=== PATIENT | male | born 1945 | race Caucasian/White ===

== ENCOUNTER → 2023-11-05 10:24 | Outpatient (REF) | payer MEDICARE, BC, SELFPAY ==
[2023-11-05 12:55] LABS: NT-proBNP 1100 pg/ml
[2023-11-05 13:10] LABS: Blood Urea Nitrogen 24 mg/dl (9-20); Calcium 9.8 mg/dl (8.4-10.2); Carbon Dioxide 24 mmol/L (22-30); Chloride 104 mmol/L (98-107); Glucose 85 mg/dl (70-99); Sodium 139 mmol/L (135-145); eGFR > 60.00
== END ==
LOC: RCS 10:24
PROVIDERS: ATTENDING PHYSICIAN Nurse Practitioner Gerontology; FAMILY PHYSICIAN Family Medicine; OTHER PHYSICIAN Nurse Practitioner Family
DX: R01.1 Cardiac murmur, unspecified (principal); M79.89 Other specified soft tissue disorders; R06.02 Shortness of breath
CPT/HCPCS: 36415; 80048; 83880; 93306

== ENCOUNTER → 2023-11-06 12:14 | Outpatient (REF) | payer MEDICARE, BC, SELFPAY ==
[2023-11-06 13:54] LABS: Blood Urea Nitrogen 31 mg/dl (9-20); Calcium 9.4 mg/dl (8.4-10.2); Carbon Dioxide 22 mmol/L (22-30); Chloride 106 mmol/L (98-107); Glucose 84 mg/dl (70-99); Potassium 5.1 mmol/L (3.5-5.1); Sodium 138 mmol/L (135-145); eGFR 50.81
== END ==
LOC: RCS 12:14
PROVIDERS: ATTENDING PHYSICIAN Internal Medicine Cardiovascular Disease; FAMILY PHYSICIAN Family Medicine
DX: E87.5 Hyperkalemia (principal)
CPT/HCPCS: 36415; 80048; 93005

== ENCOUNTER → 2023-11-11 09:56 | Outpatient (REF) | payer MEDICARE, BC, SELFPAY ==
[2023-11-11 10:54] LABS: % Basophils 0.9 % (0-2); % Eosinophils 3.8 % (0-6); % Immature Granulocytes 0.3 % (0-0.5); % Lymphocytes 8.1 % (20.5-51.1); % Monocytes 8.5 % (1.7-9.3); % Neutrophils 78.4 % (42.2-75.2); Absolute Basophils 0.1 10^3/uL (0-0.2); Absolute Eosinophils 0.3 10^3/uL (0-0.7); Absolute Lymphocytes 0.6 10^3/uL (1.2-3.4); Absolute Monocytes 0.7 10^3/uL (0.1-0.6); Absolute Neutrophils 6.2 10^3/uL (1.4-6.5); Hematocrit 48.3 % (39.0-52.0); Hemoglobin 16.3 g/dL (13.0-18.0); Mean Corp Hgb Conc. 33.7 g/dL (33.0-37.0); Mean Corpuscular Hgb 34.2 pg (27.0-31.0); Mean Corpuscular Volume 101.3 fL (80.0-94.0); Mean Platelet Volume 9.4 fL (7.4-10.4); Nucleated Red Blood Cells % 0 % (-); Platelet Count 255 10^3/uL (130-400); Red Blood Cell Count 4.77 10^6/uL (4.70-6.10); Red Cell Dist. Width 13.2 % (11.5-14.5); White Blood Cell Count 7.9 10^3/uL (4.8-10.8)
[2023-11-11 11:35] LABS: AST (SGOT) 22 U/L (17-59)
[2023-11-11 11:36] LABS: ALT (SGPT) 13 U/L (0-50); Albumin 3.9 g/dl (3.5-5.0); Alkaline Phosphatase 102 U/L (38-126); Blood Urea Nitrogen 28 mg/dl (9-20); Calcium 9.2 mg/dl (8.4-10.2); Carbon Dioxide 25 mmol/L (22-30); Chloride 105 mmol/L (98-107); Glucose 97 mg/dl (70-99); HDL Cholesterol 93 mg/dl; LDL Cholesterol, Calculated 98 mg/dl; Sodium 138 mmol/L (135-145); Total Bilirubin 0.7 mg/dl (0.2-1.3); Total Cholesterol 204 mg/dl (50-199); Total Protein 7.6 g/dl (6.3-8.2); Triglyceride 66 mg/dl (10-149); Very Low Density Lipoprotein 13 mg/dl (0-30); eGFR > 60.00
[2023-11-11 11:53] LABS: PSA, Total - Diagnostic 9.86 ng/ml (0.0-4.0)
== END ==
LOC: REG 09:56
PROVIDERS: ATTENDING PHYSICIAN Internal Medicine Cardiovascular Disease; FAMILY PHYSICIAN Family Medicine
DX: C61 Malignant neoplasm of prostate (principal); I25.10 Atherosclerotic heart disease of native coronary artery without angina pectoris; E78.00 Pure hypercholesterolemia, unspecified; D64.9 Anemia, unspecified; I10 Essential (primary) hypertension; N17.9 Acute kidney failure, unspecified
CPT/HCPCS: 36415; 80053; 80061; 84153; 85025

== ENCOUNTER → 2023-11-19 11:29 | Outpatient (REF) | payer MEDICARE, BC, SELFPAY | LOC: RAD 11:29 | PROVIDERS: ATTENDING PHYSICIAN Nurse Practitioner Family | DX: R06.02 Shortness of breath (principal) | CPT/HCPCS: 71046 ==

== ENCOUNTER → 2023-12-11 10:50 | Outpatient (REF) | payer MEDICARE, BC, SELFPAY ==
[2023-12-11 13:19] LABS: Blood Urea Nitrogen 30 mg/dl (9-20); Calcium 9.3 mg/dl (8.4-10.2); Carbon Dioxide 24 mmol/L (22-30); Chloride 106 mmol/L (98-107); Glucose 105 mg/dl (70-99); Potassium 5.1 mmol/L (3.5-5.1); Sodium 140 mmol/L (135-145); eGFR > 60.00
== END ==
LOC: REG 10:50
PROVIDERS: ATTENDING PHYSICIAN Internal Medicine Cardiovascular Disease; FAMILY PHYSICIAN Family Medicine; REFERRING PHYSICIAN Internal Medicine Cardiovascular Disease
DX: I10 Essential (primary) hypertension (principal); N17.9 Acute kidney failure, unspecified
CPT/HCPCS: 36415; 80048

== ENCOUNTER → 2024-04-02 11:41 | Outpatient (REF) | payer MEDICARE, BC, SELFPAY ==
[2024-04-02 14:01] LABS: PSA, Total - Diagnostic 0.32 ng/ml (0.0-4.0)
== END ==
LOC: REG 11:41
PROVIDERS: ATTENDING PHYSICIAN Specialist; FAMILY PHYSICIAN Family Medicine; OTHER PHYSICIAN Internal Medicine Cardiovascular Disease
DX: N39.41 Urge incontinence (principal); C61 Malignant neoplasm of prostate
CPT/HCPCS: 36415; 84153; 84403

== ENCOUNTER 2024-04-29 22:43 | Inpatient (IN) | payer MEDICARE, BC, SELFPAY ==
[2024-04-29] VITALS (13 sets, daily range): BP systolic 98–125; BP diastolic 51–98; PULSE 2–103; BMI 30.2; BMI 30.1
--- NOTE | 2024-04-29 19:31 | ED.GENMED ---
History of Present Illness
General
Chief Complaint: Breathing Problem
Source: patient
Time Seen by Provider: 04/29/24 19:09
History of Present Illness
History of Present Illness:
79-year-old male presents to the emergency room for shortness of breath, generalized weakness. Family states the patient has not been motivated or had the energy to get out of his chair all day. He seems winded. They used a home pulse oximeter to
measure his pulse ox and were getting readings in the 60s. Family noted increasing lower extremity edema. No known fever. Patient denies any chest pain. Patient states he has been compliant with his medications.
Past History
Past History
ED Past Medical History: COPD (Mild), HTN, Hypercholesterolemia and Other (GI bleed)
ED Past Surgical History: Appendectomy, Urological and Other (Hernia repair)
Social History
Tobacco: Former smoker
Alcohol: Daily (wine 3 glases)
Personal:
Living: with family
Family History
Family History: Other (Parkinson's); Negative Diabetes, Hypertension, Early CAD, Asthma or Cancer
Phy Exam
Physical Exam
Physical Exam:
General: Awake, Alert, Oriented X3. Appears somewhat short of breath, chronically ill
Vitals: Tachycardic
Head: Atraumatic
Eyes: Pupils equal, EOMI
Throat: Airway intact, no exudates, markedly dry mucosa
Neck: Trachea midline
Lungs: Crackles bilateral bases
Heart: Tachycardic, irregular
Abd: Soft, Nontender, No pulsatile mass
Neuro: Nonfocal
Skin: Warm, dry, no rash
Extremities: pulses equal b/l, 3+ edema
Scores
Heart Failure Risk
Heart Failure Risk Score: Yes
History of Stroke or TIA: No
History of intubation for respiratory distress: No
Heart rate on ED arrival >/= 110: Yes
SaO2 <90% on arrival on room air: Yes
HR >/=110 during 3min walk test (or too ill to perform test): Yes
ECG has acute ischemic changes: Yes
Urea >/=12mmol/L (BUN 33.6mg/dL): Yes
Serum CO2>/=35mmol/L: No
Troponin I or T elevated to OK Level (0.4mg/dL): No
NT-proBNP >/=5,000ng/L (5,000pg/ml): Yes
HF Risk Score: 7
Admission Status: VERY HIGH RISK 69.8% Consider admission to hospital
Course
Orders/Labs/Results
Orders:
Orders
04/29/24 19:12
Electrocardiogram (*1) Urgent
Reason for Study: Atrial Flutter
EKG- Treatment ONCE
04/29/24 19:24
Complete Blood Count/With Diff Urgent
Comprehensive Metabolic Panel Urgent
NT-proBNP Urgent
Troponin I Urgent
Venous Blood Gas Urgent
%Oxygen/Room Air: 85
04/29/24 19:30
Diltiazem 125 mg/125 ml Nss [Cardizem] 125 mg in 125 ml IV NOW
Initial dose in mg/hr, then titrate:: 5
Titrate to keep:: Heart rate 80-100 bpm
Titrate by mg/hr:: 5 mg/hr
Frequency of titrations (minutes):: 15
Maximum dose in mg/hr:: 15
Diltiazem HCl [Cardizem] 15 mg IV NOW STA
04/29/24 19:31
CR Chest Portable - 1 View Urgent
Comment:
Reason For Exam: sob, hypoxia
Reason Study Needs to be Portable: Patient Unstable
04/29/24 20:10
Bipap [RESP] Urgent
Patient to use own unit?: No
Inspiratory Pressure (cm H2O): 12
Expiratory Pressure (cm H2O): 4
04/29/24 20:11
Electrocardiogram (*1) Urgent
Reason for Study: Tachycardia
04/29/24 20:12
EKG- Treatment ONCE
04/29/24 20:34
0.9% Sodium Chloride 500 ml [Nss] 500 ml IV BOLUS
Diltiazem HCl [Cardizem] 25 mg IV NOW STA
04/29/24 21:00
Apixaban [Eliquis] 2.5 mg PO NOW STA
04/29/24 21:18
Admit/Transfer Patient As Directed
Co-Sign Provider:
Level of Care: Inpatient admission
Assign to:: IMU- Intermediate Care
Physician / Group: Bartolo
Diagnosis: A-Fib, CHF, Hypercapnic Resp Failure
Reason for Hospitalization: A-Fib, CHF, Hypercapnic Resp Failure
Expected length of stay greater than two midnights?: Yes
ELOS- Estimated Length of Stay in days: 4
I certify the patient meets the requirements for IP care: Yes
04/29/24 21:19
PRN Pain Medication Management As Directed
May give lesser potent ordered pain med per pt: Yes
preference::
Protocol:: Medication orders for pain may be administered in a
manner that supports deferring to patient preference
when the pt is:
- Requesting an ordered lesser potent pain medication.
Least to most potent pain medications are defined
as: acetaminophen < NSAID < tramadol < opioids
(morphine, oxycodone, hydromorphone).
- Requesting a lesser dose of the same medication IF
ORDERED.
- Requesting a less intrusive route of administration
if both routes are prescribed by the provider (PO <
IV).
04/29/24 21:20
Code Status As Directed
Resuscitation Status: Full Code
Abnormal Lab Results
04/29/24
19:24
RBC 3.97 L 10^6/uL
(4.70-6.10)
Hgb 12.6 L g/dL
(13.0-18.0)
MCV 103.5 H fL
(80.0-94.0)
MCH 31.7 H pg
(27.0-31.0)
MCHC 30.7 L g/dL
(33.0-37.0)
Absolute Neuts (auto) 7.6 H 10^3/uL
(1.4-6.5)
Absolute Lymphs (auto) 0.5 L 10^3/uL
(1.2-3.4)
Absolute Monos (auto) 0.9 H 10^3/uL
(0.1-0.6)
Neutrophils % 83.2 H %
(42.2-75.2)
Lymphocytes % 5.3 L %
(20.5-51.1)
VBG pH 7.18 L*
(7.32-7.43)
VBG pCO2 73 H* mmHg
(35-48)
VBG HCO3 27.2 H mmol/L
(22-27)
BUN 70 H mg/dl
(9-20)
Creatinine 2.5 H mg/dL
(0.7-1.3)
Glucose 118 H mg/dl
(70-99)
Troponin I 0.068 H* ng/ml
04/29/24 19:24
04/29/24 19:24
Vital Signs
Initial and Last Documented VS:
Initial Vital Signs
Temp Pulse Resp BP Pulse Ox
97.8 F 139 20 113/98 98
04/29/24 19:10 04/29/24 19:10 04/29/24 19:10 04/29/24 19:10 04/29/24 19:10
Last Documented Vital Signs
Temp Pulse Resp BP Pulse Ox
97.8 F 119 28 98/77 93
04/29/24 19:10 04/29/24 22:00 04/29/24 22:00 04/29/24 22:00 04/29/24 22:00
MDM/Problems Addressed
Differential Diagnosis Includes:
CHF, COPD exacerbation, atrial fibrillation, MAT, PE
MDM/Problems Addressed:
Patient presents with malaise, shortness of breath. EKG here reveals atrial flutter with rapid ventricular response. Physical exam reveals crackles and decreased aeration. Labs show a normal white count, essentially normal hemoglobin, respiratory
acidosis on a venous blood gas with the pCO2 of 73. BiPAP initiated for this which is likely related to a combination of CHF and COPD. Patient's renal function is markedly abnormal with a BUN of 70 creatinine 2.5. Clinically he appears to be
intravascular depleted despite the fact he has third spaced a lot of fluid and, certainly has some component of heart failure. Troponin minimally elevated 0.068 which is of uncertain significance. proBNP is markedly elevated at 11,000. Small IV
fluid bolus given to help replace intravascular depletion. Patient likely will require diuresis during this stay but currently with his clinical exam and elevated BUN and creatinine I feel we need some intravascular fluid repletion. Cardizem bolus
and infusion administered to help control his a flutter with rapid ventricular response. Dose of Eliquis administered for this as well. Case discussed with Dr. Moran.
Chronic conditions affecting care: HTN and COPD
*Radiology
Radiology exam reviewed: preliminary read by ED provider (No effusions, no significant pulmonary edema on my review)
*Pulse Oximetry
Patient hypoxic: no
*EKG
Interpreted by ED Provider?: Yes
Heart Rate: 139
Rate: tachycardiac
Rhythm: atrial flutter
QRS Pattern: normal QRS
Ischemia: non-specific ST changes
*[employer] Interpretation
Rate: tachycardiac
Interpretation: abnormal
Heart Rate: 139
Rhythm: atrial flutter
*Critical Care Note
Total Time (30-74mins, 75-104mins- exclusive of procedures): 40 min
comment:
Critical care statement: A total of 40 minutes of critical care time was provided for this patient. This includes management of unstable vital signs, evaluation of the patient at bedside, reviewing the patient's pertinent medical records, discussion
with consultants, review of old EKGs and review of pertinent medical records. This time with separate from time utilized to perform the aforementioned documented procedures
ED Attending Note
-
Portions of this chart may have been created with voice recognition software.� Occasional wrong word or��sound alike� substitutions may have occurred due to the inherent limitations of voice recognition software.
Discharge Plan
Departure
Patient Disposition: Admit
Date of Disposition: 04/29/24
Time of Disposition: 20:41
Admit to: IMU
Presentation/result/management discussed w/ accepting MD/DO: Hospitalist
Condition: Fair
Discharge Problem:
Atrial flutter with rapid ventricular response, COPD exacerbation, Acute renal failure (ARF), Acute dehydration, Acute respiratory acidosis
Prescriptions:
No Action
Trelegy Ellipta 100-62.5-25 mcg Blister With Device
1 inh INHALATION R DAILY
rosuvastatin [Crestor] 20 mg tablet
20 mg PO DAILY Qty: 90 3RF
furosemide [Lasix] 20 mg Tablet
20 mg PO DAILY
bicalutamide 50 mg Tablet
50 mg PO DAILY
omeprazole 40 mg Capsule,Delayed Release(Dr/Ec)
40 mg PO DAILY
Interventions
Interventions:
*Risk Screen - Suicide Last Done: 04/29/24 19:10
*General Assessment Last Done: 04/29/24 19:10
*Neglect/Abuse Screening Last Done: 04/29/24 19:10
ED- Cardiac Assessment Last Done: 04/29/24 20:17
ED- Pulmonary Assessment Last Done: 04/29/24 20:17
Discharge Date and Time
Print Language: SERBIAN
[2024-04-29 19:32] LABS: Venous Blood Gas B.E. -2.8 mmol/L (-4 to +4); Venous Blood Gas HCO3 27.2 mmol/L (22-27); Venous Blood Gas O2 Sat % 54.9 %; Venous Blood Gas pO2 38 mmHg (30-50)
[2024-04-29 19:33] LABS: % Basophils 0.5 % (0-2); % Eosinophils 1.6 % (0-6); % Immature Granulocytes 0.2 % (0-0.5); % Lymphocytes 5.3 % (20.5-51.1); % Monocytes 9.2 % (1.7-9.3); % Neutrophils 83.2 % (42.2-75.2); Absolute Basophils 0.1 10^3/uL (0-0.2); Absolute Eosinophils 0.2 10^3/uL (0-0.7); Absolute Lymphocytes 0.5 10^3/uL (1.2-3.4); Absolute Monocytes 0.9 10^3/uL (0.1-0.6); Absolute Neutrophils 7.6 10^3/uL (1.4-6.5); Hematocrit 41.1 % (39.0-52.0); Hemoglobin 12.6 g/dL (13.0-18.0); Mean Corp Hgb Conc. 30.7 g/dL (33.0-37.0); Mean Corpuscular Hgb 31.7 pg (27.0-31.0); Mean Corpuscular Volume 103.5 fL (80.0-94.0); Nucleated Red Blood Cells % 0 % (-); Platelet Count 382 10^3/uL (130-400); Red Blood Cell Count 3.97 10^6/uL (4.70-6.10); Red Cell Dist. Width 13.5 % (11.5-14.5); White Blood Cell Count 9.2 10^3/uL (4.8-10.8)
[2024-04-29] MEDS: CARDIZEM 15 MG IV (19:39)
[2024-04-29] MEDS: CARDIZEM 125 IV (19:40)
[2024-04-29 19:44] LABS: Venous Blood Gas pCO2 73 mmHg (35-48); Venous Blood Gas pH 7.18 (7.32-7.43)
[2024-04-29 20:11] LABS: NT-proBNP 11100 pg/ml; Troponin I 0.068 ng/ml
[2024-04-29 20:15] LABS: ALT (SGPT) 18 U/L (0-50); AST (SGOT) 22 U/L (17-59); Albumin 4.2 g/dl (3.5-5.0); Alkaline Phosphatase 98 U/L (38-126); Blood Urea Nitrogen 70 mg/dl (9-20); Calcium 8.9 mg/dl (8.4-10.2); Carbon Dioxide 26 mmol/L (22-30); Chloride 103 mmol/L (98-107); Estimated Creatinine Clearance 29 ml/min; Glucose 118 mg/dl (70-99); Potassium 5.1 mmol/L (3.5-5.1); Sodium 143 mmol/L (135-145); Total Bilirubin 0.4 mg/dl (0.2-1.3); Total Protein 7.9 g/dl (6.3-8.2); eGFR 25.18
[2024-04-29] MEDS: NSS 500 IV (20:41)
[2024-04-29] MEDS: CARDIZEM 25 MG IV (20:41)
--- NOTE | 2024-04-29 21:25 | HPS.HSE ---
Family Physician
-
Family Physician: Christian Pittman
Chief Complaint
-
Weakness
History of Present Illness
Patient is an 79y M with PMH significant for ASCVD, CHF and COPD who presents to ED for evaluation of weakness and fatigue. History obtained from patient and his family at the bedside. Patient has reportedly been more tired / fatigued over the
past few days / weeks. He specifically denies any new / worsened SOB, chest pain / pressure, palpitations, cough, fevers / chills, etc. He admits to feeling tired. He states that he has been compliant with his diuretic dosing and his home O2 use
- since Pulmonary visit on 04/14 when his non-compliance with these measures was addressed.
Despite this, patient states that his weight is up and his LE swelling is greatly increased.
His family notes that he slept for much of the day yesterday and had no appetite yesterday or today. He did not eat despite the holiday / family gathering.
Family encouraged evaluation in the ED.
On arrival, patient was noted to be in SVT with rate of 140 bpm that remained fairly constant.
Again, he had no sense of palpitations. He denies any prior h/o A-Fib or other arrhythmia.
Medical History
Past Medical History
Past Medical History: Reports Other
Additional Past Medical History:
ASCVD (CAD, PAD)
Hypertension
Chronic HFpEF
COPD
GERD / Hiatal Hernia
Prostate Cancer
Past Surgical History: Reports Other
Additional Past Surgical History:
Prostatectomy
Appendectomy
Eye Surgery
Left Decortication / Pleurodesis
Social History
Tobacco: Former Smoker (Quit smoking 15 years ago. 30 pack years total use.)
Alcohol: Occasional
Drug: None
Family History
Family History: Not pertinent
Allergies / Home Medications
Allergies reflects when Allergies were last updated in [employer].
Home Medications with original date entered in [employer]
Allergy/Medication List:
Allergies
Allergy/AdvReac Type Severity Reaction Status Date / Time
Penicillins Allergy Intermediate rash, Verified 04/29/24 19:10
swelling
Home Medications
fluticasone fur. 100 mcg-umeclid 62.5 mcg-vilant 25 mcg inhalat.powder (Trelegy Ellipta) 1 inh inhalation R DAILY 11/01/22
rosuvastatin 20 mg tablet (Crestor) 20 mg PO DAILY #90 tabs 11/12/22
bicalutamide 50 mg tablet 50 mg PO DAILY 04/29/24
furosemide 20 mg tablet (Lasix) 20 mg PO DAILY 04/29/24
omeprazole 40 mg capsule,delayed release 40 mg PO DAILY 04/29/24
Review of Systems
-
History Source: Patient and Family
A 12 point ROS was completed and negative except as noted: Yes
Constitutional: Reports Fatigue; Denies Fever or Chills
EENT: Denies Sore Throat
Respiratory: Reports Trouble Breathing; Denies Cough or Hemoptysis
Cardiac: Denies Chest Pain, Diaphoresis, Palpitations or Syncope
Abdomen/GI: Reports Anorexia; Denies Abdominal Pain, Nausea, Vomiting or Diarrhea
: Denies Dysuria, Frequency or Flank Pain
Musculoskeletal: Reports Edema; Denies Joint Pain
Neurological: Denies Dizzy or Headache
Psych: Denies Depression or Anxiety
Physical Exam
Vital Signs
Vital Signs
Temp Pulse Resp BP Pulse Ox
97.8 F 138 26 109/51 92
04/29/24 19:10 04/29/24 20:15 04/29/24 20:15 04/29/24 20:00 04/29/24 19:45
Physical Exam
General: Other (79y M in no acute distress. BiPAP mask in place.)
HEENT: Moist mucous membranes, PERRLA and Other (Pos JVD to the angle of the mandible.)
Respiratory: Other (Decreased BS at bases - few scattered rales. No rhonchi / wheezing.)
Cardiac: S1/S2, Irregular Rhythm and Tachycardia; No Murmur
GI: Soft, Non Tender, Non Distended and Normal Bowel Sounds
Musculoskeletal: No Clubbing, No Cyanosis and Other (4+ pitting edema in dependent fashion - more evident in posterior thighs / calves than ankles.)
Neuro: AO x 3
Laboratory Results
-
04/29/24 19:24
04/29/24 19:24
Laboratory Results
Total Bilirubin 0.4 mg/dl (0.2-1.3) 04/29/24 19:24
AST 22 U/L (17-59) 04/29/24 19:24
ALT 18 U/L (0-50) 04/29/24 19:24
Alkaline Phosphatase 98 U/L (38-126) 04/29/24 19:24
Troponin I 0.068 ng/ml H* 04/29/24 19:24
Impression/Plan
-
A/P: Patient is an 79y M with PMH significant for ASCVD, CHF and COPD who presents to ED for evaluation of weakness and fatigue.
Atrial Fibrillation / Flutter with Rapid Ventricular Response
- Admit for further evaluation and treatment.
- This is a new diagnosis for Mr. Leiva.
- Continue IV diltiazem and titrate as needed.
- Continue Eliquis (first dose given in the ED).
- With no noted symptoms - unclear how long arrhythmia has been present.
- Monitor on tele overnight.
- Cardiology evaluation in the AM.
Acute on Chronic HFpEF
- Patient with evident volume overload with 4+ pitting edema, 20 lbs weight gain and marked elevation in BNP.
- Patient weighs himself weekly at home and has noted increase in weight.
- He had questionable compliance with Lasix prior to 04/14 appointment with Pulmonary - states he has been better since that time.
- IV Lasix BID.
- Follow I/Os, daily weights, etc.
- Update Echo (EF 11/2023 was 55-60%).
- Rate / rhythm control as tachycardia likely contributing to his decompensation.
- Cardiology evaluation as noted above.
Acute Hypercapnic Respiratory Failure
Chronic Hypoxemic Respiratory Failure
COPD without Acute Exacerbation
- VBG in the ED today shows pH = 7.13 and elevated pCO2 = 73.
- Started on BiPAP and will continue overnight. Repeat gas in AM.
- Prescribed O2 at home 2-3 lpm - he is usually compliant with this at night - less so during the day.
- Increased O2 use last few days as he has remained in bed more often.
- ? if he would benefit more from BiPAP at night for home use given apparent CO2 retention?
- Pulm evaluation for additional recommendations.
- DuoNebs PRN. No evident wheezing, cough, etc.
ASCVD
- Patient denies any chest pain or any acute symptom changes from his perspective.
- Continue statin. Eliquis added.
- Cath (10/2022) showed extensive coronary calcification and specifically 70% RCA lesion.
- Follow serial troponin - current elevation likely non-ischemic myocardial injury due to tachycardia, CHF, etc.
- Cardiology eval as noted above.
Benign Hypertension
- Stable. BP Lower than his usual - likely due to tachycardia.
- Follow for improvement with rate control and diuresis.
- He is not on any antihypertensive agents at baseline.
GERD / Hiatal Hernia
- Stable. Continue daily PPI.
Prostate Cancer
- s/p prostatectomy and currently on bicalutamide (last 2-3 months).
- Will hold this acutely until CHF is under better control.
- Bladder scan protocols.
DVT Prophylaxis: Eliquis
Code Status: Full
[2024-04-29] MEDS: ELIQUIS 2.5 MG PO (21:32)
[2024-04-29] MEDS: LASIX 40 MG IV (23:37)
[2024-04-30] VITALS (20 sets, daily range): BP systolic 94–133; BP diastolic 58–91; PULSE 2–135; O2SAT 93; BMI 30.1
--- NOTE | 2024-04-30 01:11 | PTCARENOTE ---
admitted patient from ED. Patient in Afib with heart rate in 120s, on Cardizem drip at 15 ml/hr. Patient on Bipap and tolerating well, sats in 90s. Patient is oriented but can get confused at times. Spoke to son, Kwame the third, on the phone and
gave update. Patient also has two daughters, Norma and Toyin. Toyin called but she is not on contact list so explained why we can not give the patients updates to her. Patient also stated to not tell Toyin about his care. Patient is
resting in bed with call vora in reach.
[2024-04-30] MEDS: LOPRESSOR 2.5 MG IV (03:55)
[2024-04-30] MEDS: CARDIZEM 125 IV ×2 (04:05→16:11)
[2024-04-30] MEDS: LOW STRENGTH ASPIRIN 81 MG PO (08:29)
[2024-04-30] MEDS: PROTONIX 40 MG PO (08:29)
[2024-04-30] MEDS: CRESTOR 20 MG PO (08:30)
[2024-04-30] MEDS: ELIQUIS 2.5 MG PO (08:30)
[2024-04-30] MEDS: LASIX 40 MG IV ×2 (08:30→17:41)
--- NOTE | 2024-04-30 09:54 | CON.CAR ---
Addendum entered and electronically signed by Ernesto Moran MD 04/30/24 14:30:
I saw and examined the patient.
The MACHINE QUILT STUFFER's note was reviewed and I agree with the note.
Comment: Patient poor historian, history obtained from daughter at bedside and record review with discussion. He is an 79-year-old gentleman known to me in the outpatient setting with a history of hypertension, PAD, cyst nonobstructive CAD, COPD
with noncompliance of oxygen and dyslipidemia who presents for ongoing fatigue. He reports to me he thinks this is blown out of proportion. However, he has had a 25 pound weight gain. His daughter states his memory seems to be declining. He
denies any palpitations or chest pain. He is sleeping in a recliner at home. On examination he is alert but lethargic. Affect is flat. He has a rapid irregular rate irregular rate and rhythm no murmur rubs or gallops were appreciated lungs with
Rales prison up. He had massive pitting edema bilaterally up all of the legs into the abdomen.Initial EKG showed atrial flutter with 2-1 block, PVCs incomplete right bundle branch block. Telemetry now shows atrial flutter with variable block.
Labs show JAMEEL with a creatinine of 2.5 rising to 3.0 since admission, proBNP 11, 100, troponin 0.06-0.05.Chest x-ray on my review shows cephalization of blood vessels with increased interstitial markings consistent with pulmonary edema and a small
left pleural effusion. Hemoglobin is 11 with an MCV of 108.1. Last echo in November 2023 showed normal biventricular size and systolic function mild , mild to moderate TR and mild pulmonary hypertension. Overall, he presents with acute on chronic
heart failure with presumed preserved ejection fraction, new atrial flutter with rapid ventricular response, JAMEEL, altered mental status, seems to be chronic question memory decline and impairment, COPD, and PAD. Agree with rate control with IV
diltiazem drip avoiding beta-blockers given COPD. Anticoagulation has been appropriately started. Will need to establish whether or not a DEO cardioversion will be indicated. Upon discussion with his daughter at the bedside and the patient, he
does have times when food gets stuck in the esophagus. Would need to consider possible GI evaluation prior to DEO, conversely could consider cardioversion in 3 weeks after uninterrupted therapy. Would not pursue rhythm control until his volume
status is improved. He has marked left and right-sided heart failure symptoms. Agree with diuresis. Creatinine will need to be closely monitored, but I suspected cardiorenal source of his JAMEEL. This should get better with diuresis. Otherwise
will need a nephrology evaluation. COPD care as per Dr. Benítez. Given the change in rhythm and acute decompensation we will update his echo. Finally for his mental status, discussed with Dr. Hankins and his daughter. This is a change from my
last visit with him but that was quite sometime ago. Workup as per Dr. Hankins.
Will follow.
Original Note:
Consultation
Consultation Request
Date/Time Consultation Requested: 04/29/24 0663
Date/Time Consultation Performed: 04/30/24 0920
Requesting Provider: Dr. Mcfarland
Performing Provider: Audrey BOWIE for Dr. Moran
Reason for Consultation: CHF, atrial flutter
Medical History
-
Chief Complaint: fatigue, hypoxia, SOB
History of Present Illness:
79 y/o male with hypertension, PAD, CAD, dyslipidemia, and COPD (prescribed home O2 wears about 2-3 hours per day per patient). For about 6 weeks, he has been feeling poorly with fatigue. He has had LE edema, weight gain, and SOB. Family checked his
pulse ox and noted it to be in the 60's at home, O2 adjusted and extra lasix given. He was taken to the ER and noted to be hypoxic in high 80's. Atrial flutter in 140's noted. He is on diltiazem drip currently and rates improved. Eliquis started. He
is in no distress at the time of my assessment. It is not clear to me if he has been compliant with daily lasix, when speaking with patient's son. Patient seen to have JAMEEL.
Past Medical History
Past Medical History: CAD, COPD, Hypercholesterolemia and Other (COPD)
Social History
Alcohol: Daily (2-3 glasses wine)
Family History
Family History: Reviewed & Not Pertinent
Allergies / Home Medications
Allergy/AdvReac Type Severity Reaction Status Date / Time
Penicillins Allergy Intermediate rash, Verified 04/29/24 19:10
swelling
�Medication �Instructions �Recorded �Confirmed �Type
fluticasone fur. 100 mcg-umeclid 1 inh inhalation R DAILY 11/01/22 04/29/24 History
62.5 mcg-vilant 25 mcg Lung/Breathing Issues
inhalat.powder (Trelegy Ellipta)
rosuvastatin 20 mg tablet (Crestor) 20 mg PO DAILY #90 tabs 11/12/22 04/29/24 Rx
bicalutamide 50 mg tablet 50 mg PO DAILY Cancer 04/29/24 04/29/24 History
furosemide 20 mg tablet (Lasix) 20 mg PO DAILY Fluid 04/29/24 04/29/24 History
Retention/Swelling
omeprazole 40 mg capsule,delayed 40 mg PO DAILY Gastrointestinal 04/29/24 04/29/24 History
release Issue
Review of Systems
-
History Source: Patient
All other systems: Negative unless noted
Constitutional: Weight Gain and Fatigue
Respiratory: Trouble Breathing
Musculoskeletal: Edema
Physical Exam
Vital Signs
Temp Pulse Resp BP Pulse Ox
97.6 F 90 27 100/65 98
04/30/24 07:10 04/30/24 08:30 04/30/24 04:00 04/30/24 08:30 04/30/24 03:00
Lab Results
Troponin I 0.068 ng/ml H* 04/29/24 19:24
Tff-O-Apyjquiqsmd Pept 18335 pg/ml 04/29/24 19:24
Physical Exam
General: Well Developed, Well Nourished and No Apparent Distress
HEENT: Normocephalic and Anicteric
Respiratory: Crackles (b/l bases ) and Other (on O2 by NC)
Cardiac: Irregular Rhythm
Musculoskeletal: Edema (moderate BLE edema)
Neuro: AO x 3
Psych: Calm
Impression / Plan
-
[id number] HFpEF:
-agree with IV lasix, which requires intensive monitoring
-echo ordered
-CHF education, limit sodium/fluid, daily labs
Atrial flutter: unknown type and onset
-rates fast on arrival- now controlled on diltiazem drip- transition to PO diltiazem today
-TSH is pending, checking echo
-Eliquis initiated for [id number] score of 4 for age, CAD, CHF. Consult CM for pricing. If/when renal function normalizes, will need higher dose, but currently on correct dosing.
-eventual DEO/CV, but not ready at this time
Abnormal troponin:
-denies CP
-suspect acute, non-ischemic myocardial injury in setting of hypoxia, CHF, JAMEEL
-trend to peak and check echo
CAD:
-stable without CP
-continue ASA, statin
PAD:
-ASA/statin
COPD:
-pulmonary is consulted
JAMEEL:
-labs pending this AM
-if no improvement with diuresis, will need nephro
Data Reviewed
-
EKG: Tracing Personally Visualized and interpreted (Atrial flutter 91 BPM)
Radiology: Image Personally Visualized and interpreted (report pending, but evidence for excess volume to my review)
Medical Tests (Nuc Med, Echo etc): Report Reviewed by me (echo 11/05/23: Normal biventricular size and systolic function without regional wall motion abnormality. Mild aortic stenosis. Mild to moderate tricuspid regurgitation. Mild pulm HTN. )
Labs: Labs Reviewed by me
--- NOTE | 2024-04-30 10:51 | CON.PUL ---
Consultation
Consultation Request
Date/Time Consultation Requested: 04/30/2024
Date/Time Consultation Performed: 04/30/2024
Requesting Provider: Dr. Hankins
Performing Provider: Dr. Randall Rizzo
Reason for Consultation: Hypercapnic respiratory failure/COPD
Medical History
-
History of Present Illness:
79-year-old man with past medical history of for heart failure, COPD who presented to the hospital complaining of fatigue and weakness. Reports significant fatigue over the last weeks. Symptoms progressed what prompted family to bring him to the
hospital.
We were consulted for evaluation of hypercapnia.
It is noted that the patient has COPD/emphysema follows up with Dr. Barriga, last time seen 04/14/2024. It is noted that the patient is not compliant with oxygen prescribed during the last visit in the office. Usually should wear 2 to 3 L with
ambulation.
Patient denies any wheezing or phlegm production. Denies hemoptysis.
Does report worsening lower extremity edema.
It is noted the patient has not been compliant with Lasix
Currently arousable, follows commands. Has good cough effort. States that he tolerated BiPAP overnight.
Past Medical History
Past Medical History: Other (See assessment and plan)
Social History
Tobacco: Former Smoker (Quit 15 years ago-1 pack/day for 30 years)
Family History
Family History: Reviewed & Not Pertinent
Allergies / Home Medications
Allergies
Allergy/AdvReac Type Severity Reaction Status Date / Time
Penicillins Allergy Intermediate rash, Verified 04/29/24 19:10
swelling
Home Medications
�Medication �Instructions �Recorded �Confirmed �Last Taken �Type
fluticasone fur. 100 mcg-umeclid 1 inh inhalation R DAILY 11/01/22 04/29/24 04/29/24 History
62.5 mcg-vilant 25 mcg Lung/Breathing Issues
inhalat.powder (Trelegy Ellipta)
rosuvastatin 20 mg tablet (Crestor) 20 mg PO DAILY #90 tabs 11/12/22 04/29/24 04/29/24 Rx
bicalutamide 50 mg tablet 50 mg PO DAILY Cancer 04/29/24 04/29/24 04/29/24 History
furosemide 20 mg tablet (Lasix) 20 mg PO DAILY Fluid 04/29/24 04/29/24 04/29/24 History
Retention/Swelling
omeprazole 40 mg capsule,delayed 40 mg PO DAILY Gastrointestinal 04/29/24 04/29/24 04/28/24 History
release Issue
Review of Systems
-
History Source: Patient
All other systems: Negative unless noted
Vitals / Labs / Diagnostic Testing
Vital Signs
Temp Pulse Resp BP Pulse Ox
97.6 F 90 27 100/65 98
04/30/24 07:10 04/30/24 08:30 04/30/24 04:00 04/30/24 08:30 04/30/24 03:00
Diagnostic Testing:
Physical Exam
-
HEENT: Normocephalic
Cardiovascular: S1/S2, Peripheral Edema (2-3 point) and JVD (Present)
Respiratory: Wheeze (n), Rhonchi (Mild) and Non-Labored Respirations
GI: Soft and Non Distended
Neurology: Awake, Alert and No Motor Deficits
Skin: Warm
General: Comfortable
Assessment
-
79-year-old man with history of COPD, heart failure with preserved ejection fraction, who was admitted with fatigue to the hospital on 04/29/2024, he was discovered to have atrial fibrillation/atrial flutter with rapid ventricular response which is
a new diagnosis for him. Started on anticoagulation in the emergency room this admission.
Also found to have signs of volume overload, it is noted that the patient does not take his Lasix.
On VBG it is noted the patient has a pH of 7.18 with pCO2 73 we were consulted for evaluation of this.
Progressive fatigue and tiredness.
Hypoxemic and hypercapnic respiratory failure: Suspect acute on chronic.
VB .
Sleep study has been suggested in the outpatient setting the patient did not follow through.
Chest x-ray 04/29/2024: Increased pulmonary vascular congestion.
Atrial flutter with rapid ventricular response.
Acute on chronic heart failure with preserved ejection fraction.
Weight gain/lower extremity edema-not compliant with Lasix
proBNP 11,000
Mild troponin increase
Acute kidney injury
History of COPD with chronic hypoxemic respiratory failure: Pulmonary function testing 09/04/2023: FEV1 1.44 L or 50%/FVC 69%, FEV1/FVC ratio 52%. Total lung capacity 101%, DLCO 28%. Moderate airflow obstruction with significant reduced diffusion
capacity
Conditions present prior admission:
Severe COPD with chronic hypoxemic respiratory failure 2 to 3 L with ambulation
Follow-up follow-up with Dr. Barriga last seen 04/14/2024
On Trelegy
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 Pleurodesis/decortication at [facility]
History of pulmonary nodule with PET negative in the past
Fatigue: On evaluation for sleep apnea in the outpatient setting-patient did not follow through with sleep study
History of prostate cancer status post radical prostatectomy 2005
Ambulatory dysfunction-ambulates with a walker
History of heart failure with preserved ejection fraction
Nonobstructive coronary artery disease
Left heart catheterization 10/2022: Normal left ventricular function with EF 61% with mild mitral regurgitation
Trivial aortic valve gradient. Of note, echocardiography in October 2021 showed aortic sclerosis without stenosis
Severely calcific coronary tree with mild disease in the left anterior descending and left circumflex. There is a 70% mid RCA lesion which is nonflow limiting by [employer] assessment
Hyperlipidemia
Former smoker [id number] history quit about 15 years ago
Echocardiogram 11/05/2023: Showed normal LVEF. Normal RV function. Mild . Mild to moderate TR. Mild pulmonary hypertension.
Assessment and plan:
VBG suggest hypercapnic respiratory failure.
In reviewing laboratory testing there is no prior metabolic alkalosis, unclear whether there is a chronic component or this is all acute secondary to his acute on chronic heart failure.
-
It is noted that in the outpatient setting a sleep study has been recommended due to chronic fatigue. Patient has not followed through.
Differential diagnosis includes obesity hypoventilation syndrome, likely has also obstructive sleep apnea. Less likely hypercapnia related to underlying COPD.
To start I will obtain an arterial blood gas to determine the baseline. Will obtain ABG tomorrow morning after diuresis. Order has been placed.
Continue with hide further management, diuresis as able.
TSH pending
May use BiPAP while in the hospital as needed and at bedtime 13/10.
-
From the COPD perspective: Patient does have moderate airflow structure with severely decreased diffusion capacity in September 2023.
Oxygen therapy compliance was recommended, he was instructed to use supplemental oxygen 2 to 3 L with ambulation.
Continue to provide to maintain pulse ox above 90%
Avoid sedatives
Avoid beta agonist at this point with new atrial flutter.
-
Will restart inhalers as the patient has no evidence for acute exacerbation.(Usually on Trelegy)
No indication for systemic corticosteroids-no evidence for acute exacerbation
-
Acute on chronic heart failure/new onset atrial flutter on anticoagulation
On Cardizem for heart rate control
Cardiology has been consulted
Repeat echocardiogram has been ordered we will follow
-
DVT prophylaxis, patient on Eliquis.
--- NOTE | 2024-04-30 11:20 | PTOTSP ---
Speech Therapy Evaluation:
Pt exhibits clinical signs of oropharyngeal dysphagia as characterized by failing 3oz swallow screen and s/sx of aspiration with thin liquids at bedside with subsequent drop in O2 (100% to 95%) and change in vocal quality. Pt is at an increased risk
of aspiration and related complications due to history of COPD, likely compounded by respiratory status, generalized weakness, and acute medical illness.
Recommend:
1. Strict NPO
2. Oral care 3x daily
3. Monitor CXR
4. VSE to further assess oropharyngeal swallow function and assist in diet recommendations for safest least restrictive diet
5. ST to follow
[2024-04-30 11:26] LABS: Hematocrit 37.4 % (39.0-52.0); Mean Corp Hgb Conc. 29.4 g/dL (33.0-37.0); Mean Corpuscular Hgb 31.8 pg (27.0-31.0); Mean Corpuscular Volume 108.1 fL (80.0-94.0); Mean Platelet Volume 9.1 fL (7.4-10.4); Platelet Count 360 10^3/uL (130-400); Red Blood Cell Count 3.46 10^6/uL (4.70-6.10); Red Cell Dist. Width 13.6 % (11.5-14.5); White Blood Cell Count 9.7 10^3/uL (4.8-10.8)
[2024-04-30 11:45] LABS: Blood Urea Nitrogen 70 mg/dl (9-20); Calcium 8.6 mg/dl (8.4-10.2); Carbon Dioxide 25 mmol/L (22-30); Chloride 105 mmol/L (98-107); Estimated Creatinine Clearance 21 ml/min; Glucose 166 mg/dl (70-99); HDL Cholesterol 69 mg/dl; LDL Cholesterol, Calculated 44 mg/dl; Potassium 5.1 mmol/L (3.5-5.1); Sodium 141 mmol/L (135-145); Total Cholesterol 122 mg/dl (50-199); Triglyceride 47 mg/dl (10-149); Very Low Density Lipoprotein 9 mg/dl (0-30); eGFR 20.23
[2024-04-30 11:53] LABS: Troponin I 0.057 ng/ml
--- NOTE | 2024-04-30 12:00 | PTCARENOTE ---
Patient AAOx3, forgetful. Afib on monitor. Cardizem gtt infusing per orders. Patient with significant coughing and wet voice after sip of water, Speech consulted and saw patient. Patient made NPO, to go for video eval today. VSS. Continuing to
closely monitor patient.
[2024-04-30 12:15] LABS: TSH Reflex To Free T4 3.76 uIU/ml (0.47-4.68)
--- NOTE | 2024-04-30 12:30 | CM ---
Addendum entered by Saray Ross RN 04/30/24 13:28:
Additional stringer checks requested by ELEONORA Hendrix;
Pradaxa 150 po twice daily
Xarelto 15 mg once daily
Stringer checks completed via [facility] (as prior stringer check for Eliquis done via [facility] was similar to results by calling [facility])
Pradaxa cost $55.51/month
Xarelto cost is similar to Eliquis at $133.04.
says Pradaxa cost is ok and she wants to talk to cardiology about the med before agreeing---> Audrey Sharma made aware.
Plan follow up after seen by PT/OT.
Plan follow patient's progress with his dysphagia/diet.
Original Note:
O2 4L/BiPAP HS. Seen by ST today - dysphagia, recommend NPO and VSE. Receiving Cardizem gtt. IV Lasix. PT/OT Evals pending.
Met with patient and Imelda Alston;
the patient's speech was somewhat slurred and responses were slow.
states speech slurring is new the past few days ---> Dr Hankins notified.
The patient resides with his in a 2 story house with 2 YVONNE.
He is mostly independent with ADLs such as bathing however needs to assist with dressing.
He is ambulatory with his quad cane or RW in the house and uses his rollator when out.
The patient still drives however stays in the car while shops.
reports he is sedentary and sits in the chair most of the day.
needs to prepare all meals.
DME - quad cane, RW, rollator, CPAP (not using), home O2 concentrator & portables ( can't remember DME provider)
No prior VN or SNF.
PCP - Christian Pittman
Pharmacy -[facility] Barr[facility]
Patient has a son and daughter. DIL is a nurse.
CM Consult: Stringer check Eliquis 2.5mg PO BID
Per [facility], cost is $138.83/month at [facility],
Spoke with Ricardo Penn (ph [phone]) cost is $135.68/month.
CM Consult: Advanced Directive
Explained forms to patient and and copy left at bedside.
Plan follow up after seen by PT/OT.
Plan follow patient's progress with his dysphagia/diet.
--- NOTE | 2024-04-30 14:32 | PTOTSP ---
Video Swallow Examination
Summary: Patient presents with mild-moderate oral and severe pharyngeal dysphagia with aspiration of all consistencies due to reduced coordination/airway closure and pharyngeal residue pooling into the airway. Cued cough was ineffective to fully
clear contrast.
Patient has risk factors for complications from aspiration at this time: acute on chronic respiratory failure and ambulatory dysfunction. Risk can be reduced with thorough oral care.
Recommend:
1. NPO; consider temporary non-oral means vs PO diet understanding risks/complications of aspiration
2. Medications : non-oral
3. Aspiration Risk Hydration Protocol - ice chips after oral care with supervision; D/C if respiratory status declines
4. Dysphagia therapy at the acute care level for education, pharyngeal swallowing exercises, and repeat video swallow study pending [facility].
--- NOTE | 2024-04-30 15:12 | W.PN.UPDATE ---
Update Note
Progress Note Update
I called as she wanted to discuss OAC options with our team. They may be able to afford the Eliquis and she wants to consider, so will leave on for now. If not, can switch to Pradaxa.
--- NOTE | 2024-04-30 15:58 | W.PN.UPDATE ---
Update Note
Progress Note Update
Echocardiogram noted with RV dysfunction and low LVEF.
Concerns for possibility of pulmonary embolism.
Eliquis has been adjusted
Lower extremity Dopplers have been ordered
Unable to perform CT angiogram due to acute kidney injury.
Eventual VQ scan
--- NOTE | 2024-04-30 16:58 | W.PN.HOSP.TC ---
Today's Communication/Plan
-
start full dose Eliquis
Assessment / Plan
Assessment / Plan
A/P: Patient is an 79y M with PMH significant for ASCVD, CHF and COPD who presents to ED for evaluation of weakness and fatigue.
Atrial Fibrillation / Flutter with Rapid Ventricular Response
- Admit for further evaluation and treatment.
- This is a new diagnosis for Mr. Leiva.
- Continue IV diltiazem and titrate as needed.
- Continue Eliquis (first dose given in the ED).
- With no noted symptoms - unclear how long arrhythmia has been present.
- Monitor on tele overnight.
- Cardiology evaluation discussed with Dr. Moran
Swallow dysfunction:
1. NPO; consider temporary non-oral means vs PO diet understanding risks/complications of aspiration
2. Medications : non-oral
3. Aspiration Risk Hydration Protocol - ice chips after oral care with supervision; D/C if respiratory status declines
4. Dysphagia therapy at the acute care level for education, pharyngeal swallowing exercises, and repeat video swallow study pending [facility].
Acute on Chronic HFpEF
- Patient with evident volume overload with 4+ pitting edema, 20 lbs weight gain and marked elevation in BNP.
- Patient weighs himself weekly at home and has noted increase in weight.
- He had questionable compliance with Lasix prior to 04/14 appointment with Pulmonary - states he has been better since that time.
- IV Lasix BID.
- Follow I/Os, daily weights, etc.
- Echo: Normal left ventricular size. Global hypokinesis. LV ejection fraction is 30-
35% by visual assessment.
Flattened septum in systole and diastole consistent with RV pressure and volume
overload.
Markedly dilated right ventricle with severe hypokinesis.
Low flow aortic stenosis.
Compared to the prior on 11/05/2023, right ventricular and left ventricular
systolic dysfunction is new. Right ventricular enlargement is new. was
mild on echo on 11/05/2023 in the setting of normal function, this supports mild
on today's study.
- Rate / rhythm control as tachycardia likely contributing to his decompensation.
- Cardiology evaluation as noted above.
Acute Hypercapnic Respiratory Failure
Chronic Hypoxemic Respiratory Failure
COPD without Acute Exacerbation
- VBG in the ED today shows pH = 7.13 and elevated pCO2 = 73.
- Started on BiPAP and will continue overnight. Repeat gas in AM.
- Prescribed O2 at home 2-3 lpm - he is usually compliant with this at night - less so during the day.
- Increased O2 use last few days as he has remained in bed more often.
- ? if he would benefit more from BiPAP at night for home use given apparent CO2 retention?
- Pulm evaluation for additional recommendations.
- DuoNebs PRN. No evident wheezing, cough, etc.
ASCVD
- Patient denies any chest pain or any acute symptom changes from his perspective.
- Continue statin. Eliquis added.
- Cath (10/2022) showed extensive coronary calcification and specifically 70% RCA lesion.
- Follow serial troponin - current elevation likely non-ischemic myocardial injury due to tachycardia, CHF, etc.
- Cardiology eval as noted above.
Benign Hypertension
- Stable. BP Lower than his usual - likely due to tachycardia.
- Follow for improvement with rate control and diuresis.
- He is not on any antihypertensive agents at baseline.
GERD / Hiatal Hernia
- Stable. Continue daily PPI.
Prostate Cancer
- s/p prostatectomy and currently on bicalutamide (last 2-3 months).
- Will hold this acutely until CHF is under better control.
- Bladder scan protocols.
DVT Prophylaxis: concern for possible PE
Eliquis to be raised to 10 mg bid. Venous Doppler ordered to eval for possible DVT. Unable to do CT-A due to renal issue, Pulm considering V/Q scan
Code Status: Full
met with dgvincent Deal. She wants to make sure she is a contact center specialist
phone # [phone]
Met with who is concerned about declining mentation over past year. States PCP evaluated him for this, but would like a more extensive evaluation
Reviewed situation with Dr. Rizzo and Luisa
Complex visit
time 65 minutes
Anticipated Discharge: > 48 hours
Subjective/Interval History
-
Date of Service: April 30, 2024
Family is concerned about decreased cognitive fxn over past year
Objective Data
-
Labs:
Laboratory Results
04/30/24
10:54
WBC 9.7
Hgb 11.0 L
Hct 37.4 L
Plt Count 360
Sodium 141
Potassium 5.1
Chloride 105
Carbon Dioxide 25
BUN 70 H
Creatinine 3.0 H
Glucose 166 H
Calcium 8.6
Vital Signs:
Vital Signs
Temp Pulse Resp BP Pulse Ox
98.2 F 107 29 105/73 100
04/30/24 11:12 04/30/24 12:00 04/30/24 12:00 04/30/24 12:00 04/30/24 12:00
Review of Systems
-
History Source: Patient, Family (reviewed with dgt and ) and Physician (reviewed with Dr. Moran)
Constitutional: Denies Fever
EENT: Reports No Symptoms Reported
Respiratory: Reports Trouble Breathing
Cardiac: Denies Chest Pain
Abdomen/GI: Reports No Symptoms
Physical Exam
-
General: Well Developed, Well Nourished and No Apparent Distress
HEENT: Normocephalic, Atraumatic and Moist Mucous Membranes
Respiratory: Clear to Auscultation; Negative Wheezes, Rales or Rhonchi
Cardiac: S1/S2 and Irregular Rhythm
GI: Nontender and Nondistended
Musculoskeletal: No Clubbing, No Cyanosis, No Edema, Edema, Right Lower Extrem and Edema, Left Lower Extrem
Neuro: Awake, Alert, Oriented and Other (slight upper extremity tremor with mild cogwheel changes)
--- NOTE | 2024-04-30 18:35 | PTCARENOTE ---
After discussion with patient, he would like his , Hellen, to be the main contact. Per patient, all of his children (Reji, Norma and Toyin) may receive updates/information from the healthcare team.
Hellen (): [phone]
Norma (daughter): [phone]
Kwame (son): [phone]
Toyin (daughter): [phone]
--- NOTE | 2024-04-30 21:01 | W.PN.UPDATE ---
Update Note
Progress Note Update
PT with new afib given eliquis last isrrael and 2.5mg this am
PT with ?PE on echo this afternoon. Cannot have CT PE study due to creat
Placed on Eliquis 10mg bid today but pt made strict NPO for aspiration noted on video swallow.
Will place on heparin gtt for now until able to take po
[2024-04-30 21:35] LABS: APTT 37.1 Sec (23.4-35.0)
[2024-04-30] MEDS: HEPARIN 25000 UNITS/250 ML IV (21:42)
--- NOTE | 2024-04-30 23:03 | PTCARENOTE ---
Patient Afib on monitor with cardizem drip running at 15. Patient is strict NPO, POST TENSIONING IRONWORKER switched PO Eliquis to heparin drip at 18 ml/hr. Patient tolerating bipap with sats in 90s. Updated son over the phone. Patient resting in bed with call vora in
reach.
[2024-05-01] VITALS (13 sets, daily range): BP systolic 102–118; BP diastolic 55–87; PULSE 2–83; BMI 30.8
[2024-05-01] MEDS: CARDIZEM 125 IV ×2 (01:13→08:34)
[2024-05-01 04:25] LABS: % Basophils 0.5 % (0-2); % Eosinophils 0.5 % (0-6); % Immature Granulocytes 0.5 % (0-0.5); % Lymphocytes 2.8 % (20.5-51.1); % Neutrophils 86.7 % (42.2-75.2); Absolute Basophils 0.1 10^3/uL (0-0.2); Absolute Eosinophils 0.1 10^3/uL (0-0.7); Absolute Immature Granulocytes 0.1 10^3/uL (0-0.05); Absolute Lymphocytes 0.4 10^3/uL (1.2-3.4); Absolute Monocytes 1.1 10^3/uL (0.1-0.6); Absolute Neutrophils 10.9 10^3/uL (1.4-6.5); Hematocrit 37.4 % (39.0-52.0); Hemoglobin 11.4 g/dL (13.0-18.0); Mean Corp Hgb Conc. 30.5 g/dL (33.0-37.0); Mean Corpuscular Hgb 32.9 pg (27.0-31.0); Mean Corpuscular Volume 107.8 fL (80.0-94.0); Mean Platelet Volume 9.3 fL (7.4-10.4); Nucleated Red Blood Cells % 0 % (-); Platelet Count 381 10^3/uL (130-400); Red Blood Cell Count 3.47 10^6/uL (4.70-6.10); Red Cell Dist. Width 13.8 % (11.5-14.5); White Blood Cell Count 12.6 10^3/uL (4.8-10.8)
[2024-05-01 04:44] LABS: Blood Urea Nitrogen 78 mg/dl (9-20); Calcium 8.6 mg/dl (8.4-10.2); Carbon Dioxide 21 mmol/L (22-30); Chloride 105 mmol/L (98-107); Estimated Creatinine Clearance 20 ml/min; Glucose 128 mg/dl (70-99); Potassium 5.8 mmol/L (3.5-5.1); Sodium 139 mmol/L (135-145); eGFR 16.26
[2024-05-01 04:47] LABS: APTT > 200 Sec (23.4-35.0)
[2024-05-01 05:25] LABS: Glucose - Point of Care 127 mg/dl (70-99)
[2024-05-01 05:43] LABS: B.E. -5.1 mmol/L; HCO3 23.7 mmol/L (21-28); O2 Saturation % 95.8 % (94-98); PCO2 62 mmHg (35-48); PO2 72 mmHg (83-108)
[2024-05-01 05:54] LABS: O2 Therapy 2L; pH 7.19 (7.35-7.45)
--- NOTE | 2024-05-01 06:27 | PTCARENOTE ---
patient potassium this am was 5.8. SOFTWARE DEVELOPER INTERN made aware and new orders placed for insulin IV push and dextrose push. Pharmacy sent up insulin subcutaneous syringe. Called pharmacy and explained needed insulin IV push, pharmacist stated this is a glitch
on their end and still trying to work it out.
[2024-05-01] MEDS: NOVOLIN R 0.05 UNITS IV (06:39)
[2024-05-01] MEDS: DEXTROSE 50% SYRINGE 25 GRAMS IV (06:40)
[2024-05-01 06:50] LABS: Glucose - Point of Care 128 mg/dl (70-99)
[2024-05-01] MEDS: PROTONIX PO (07:32)
[2024-05-01] MEDS: LOW STRENGTH ASPIRIN PO (07:32)
[2024-05-01] MEDS: CRESTOR PO (07:32)
[2024-05-01] MEDS: LASIX 40 MG IV ×2 (07:48→16:36)
[2024-05-01 07:56] LABS: Glucose - Point of Care 160 mg/dl (70-99)
--- NOTE | 2024-05-01 08:00 | PTCARENOTE ---
Patient received from warehouse worker 2nd shift. Patient resting in bed, comfortable but in some respiratory distress. AAO but somewhat confused conversation, VSS. Currently on 4L N/C but going to place on BiPAP, patient agreeable at this time. Cardizem gtt
at 15mg/hr and Heparin gtt at 1400 units restarted after PTT >200. No test scheduled for today. Call vora in reach.
[2024-05-01 08:50] LABS: Glucose - Point of Care 164 mg/dl (70-99)
--- NOTE | 2024-05-01 09:05 | PTCARENOTE ---
Had patient placed on BiPAP by Respiratory, patient appeared to be with increased WOB. Patient tolerated for just under an hour before starting to attempt to take mask off. Patient instructed repeatedly to keep mask on and benefit of wearing with
the AM ABG results. Patient still kept taking mask off, now on 4L N/C.
Patient also stated that he wanted to leave AMA. Told patient his is not a any shape to safely leave the hospital and he that he is very sick.
[2024-05-01 10:06] LABS: Potassium 5.9 mmol/L (3.5-5.1)
--- NOTE | 2024-05-01 10:45 | W.PN.PUL3 ---
Addendum entered and electronically signed by Lillie Medina DO 05/02/24 07:30:
Spoke with care team yesterday, agree with comfort measures
He is now DNR
Can remove orders for BIPAP
We will sign off at this time, please call with questions
Original Note:
Today's Communication / Plan
-
Numerous multiple serious issues including HFrEF (new), Afib, COPD/emphysema, FINN/OHS, JAMEEL, severe dysphagia
Medical noncompliance, ongoing
I reviewed this with patient and , prognosis snf seems poor
He remains full code
They were both willing to speak to hospice team
Update care team
Assessment
-
79-year-old man with history of COPD, heart failure with preserved ejection fraction, who was admitted with fatigue to the hospital on 04/29/2024, he was discovered to have atrial fibrillation/atrial flutter with rapid ventricular response which is
a new diagnosis for him. Started on anticoagulation in the emergency room this admission. Also found to have signs of volume overload, it is noted that the patient does not take his Lasix. On VBG it is noted the patient has a pH of 7.18 with pCO2
73 we were consulted for evaluation of this.
Progressive fatigue and tiredness.
Hypoxemic and hypercapnic respiratory failure: Suspect acute on chronic.
VB.18/73/38
Sleep study has been suggested in the outpatient setting the patient did not follow through.
Chest x-ray 04/29/2024: Increased pulmonary vascular congestion.
Atrial flutter with rapid ventricular response.
Acute on chronic heart failure with reduced ejection fraction (30-35%)
Weight gain/lower extremity edema-not compliant with Lasix
proBNP 11,000
Mild troponin increase
Acute kidney injury
Severe dysphagia
Conditions present prior admission:
Severe COPD with chronic hypoxemic respiratory failure 2 to 3 L with ambulation
Follow-up follow-up with Dr. Barriga last seen 04/14/2024
On Trelegy
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 Pleurodesis/decortication at [facility]
History of pulmonary nodule with PET negative in the past
Fatigue: On evaluation for sleep apnea in the outpatient setting-patient did not follow through with sleep study
History of prostate cancer status post radical prostatectomy 2005
Ambulatory dysfunction-ambulates with a walker
History of heart failure with preserved ejection fraction
Nonobstructive coronary artery disease
Hyperlipidemia
Former smoker [id number] history quit about 15 years ago
Assessment and plan:
VBG suggest hypercapnic respiratory failure.
In reviewing laboratory testing there is no prior metabolic alkalosis, unclear whether there is a chronic component or this is all acute secondary to his acute on chronic heart failure.
It is noted that in the outpatient setting a sleep study has been recommended due to chronic fatigue. Patient has not followed through.
Differential diagnosis includes obesity hypoventilation syndrome, likely has also obstructive sleep apnea. Less likely hypercapnia related to underlying COPD.
AB.
Has been refusing BIPAP
From the COPD/Emphysema perspective: Patient does have moderate airflow structure with severely decreased diffusion capacity in September 2023.
Oxygen therapy compliance was recommended, he was instructed to use supplemental oxygen 2 to 3 L with ambulation. Has refused O2
Continue to provide to maintain pulse ox above 90%
Avoid sedatives
Will restart inhalers as the patient has no evidence for acute exacerbation. (Usually on Trelegy)
No indication for systemic corticosteroids-no evidence for acute exacerbation
Acute on chronic heart failure/new onset atrial flutter on anticoagulation
On Cardizem for heart rate control
Cardiology has been consulted
Repeat echocardiogram showing new global HK, reduced EF 30-35%, RV dysfunction
Follow up recs for further management
Volume is an issue, 4+ edema on exam, diuresis ongoing but limited due to JAMEEL
Echocardiogram noted with RV dysfunction and low LVEF--Concerns for possibility of pulmonary embolism.
IV heparin placed
Lower extremity Dopplers have been ordered--negative
Unable to perform CT angiogram due to acute kidney injury--Eventual VQ scan
JAMEEL worsening, 1.1 baseline, trending upward 2.5 now 3.6
Consider renal consult
Speech eval-failed trials, reviewed VSE
NPO now, would need DHT or alternate means
Overall prognosis seems poor in setting of multiple severe issues that cannot be readily fixed and noncompliance.
I discussed hospice with patient and he seemed agreeable to consult
Discussed with as well, she was ok with consult but wanted to speak with patient further
Care team updated as well
Diagnostic Data
Chest X-Ray: 04/29/24- Chronic pleural thickening and calcifications within both lung bases. Questionable increased interstitial markings bilaterally versus technique/artifact. A component of mild interstitial edema cannot be excluded. No focal
airspace disease. No significant pleural effusions.
11/19/23- Findings suggesting new moderate left lower lobe pneumonia.
CT Scan: CHEST 11/11/21- 1. No CT evidence for pulmonary embolism. No aortic dissection.
2. Mild cardiomegaly. Coronary artery calcifications, moderate.
3. Calcified pleural plaques. Similar to the previous exam with minimal increase.
4. Chronic lung changes consistent with changes of COPD and centrilobular emphysema. No focal airspace process. Mild bibasilar atelectasis.
5. Cholelithiasis.
6. Old healed left posterior lower rib fractures.
Echocardiogram 11/05/2023: Showed normal LVEF. Normal RV function. Mild . Mild to moderate TR. Mild pulmonary hypertension.
Left heart catheterization 10/2022: Normal left ventricular function with EF 61% with mild mitral regurgitation
Trivial aortic valve gradient. Of note, echocardiography in October 2021 showed aortic sclerosis without stenosis
Severely calcific coronary tree with mild disease in the left anterior descending and left circumflex. There is a 70% mid RCA lesion which is nonflow limiting by FloWire assessment
ECHO 04/30/24 Normal left ventricular size. Global hypokinesis. LV ejection fraction is 30- 35% by visual assessment. Flattened septum in systole and diastole consistent with RV pressure and volume
overload. Markedly dilated right ventricle with severe hypokinesis. Low flow aortic stenosis. Compared to the prior on 11/05/2023, right ventricular and left ventricular systolic dysfunction is new. Right ventricular enlargement is new. was mild
on echo on 11/05/2023 in the setting of normal function, this supports mild on today's study. PASP 39
Pulmonary function testing 09/04/2023: FEV1 1.44 L or 50%/FVC 69%, FEV1/FVC ratio 52%. Total lung capacity 101%, DLCO 28%. Moderate airflow obstruction with severe/significant reduced diffusion capacity
VSE 04/30/24: Patient presents with mild-moderate oral and severe pharyngeal dysphagia with aspiration of all consistencies due to reduced coordination/airway closure and pharyngeal residue pooling into the airway. Cued cough was ineffective to
fully clear contrast.
Recommend: NPO; consider temporary non-oral means vs PO diet understanding risks/complications of aspiration
Reports and relevant images were personally reviewed.
Total time spent on this encounter __56__ minutes which includes review of history, physical exam, medications, laboratory data, personal review of imaging, extensive review of outpatient records, discussion with care team and respiratory therapy.
Subjective Data
-
Date of Service:
Date of Service: May 01, 2024
Chief Complaint: Pulmonary Follow Up
Subjective:
Remains ill, refused BIPAP
Lethargic but able to respond
Voice is garbled/weak
Objective Data
Data Reviewed
Vital Signs / I&O / Oxygen:
Vital Signs
Temp Pulse Resp BP Pulse Ox
98.1 F 88 31 116/81 95
05/01/24 08:20 05/01/24 07:48 05/01/24 03:15 05/01/24 07:48 05/01/24 03:15
SaO2 95
Nasal Cannula flow liters per 4
minute
Physical Exam
General: Poor Appetite and Other (Chronically ill appearing)
HEENT: Normocephalic, Anicteric and Moist Mucous Membranes
Cardiovascular: S1-S2, Regular Rhythm and Peripheral Edema (4+)
Respiratory: Crackles, Non-Labored Respirations and Other (dyspneic with conversation)
GI: Soft, Non Distended and Non Tender
Neurology: Awake, Alert, Oriented, No Motor Deficits and Other (weak/garbled voice)
Skin: Warm and Dry
Labs/Micro/Reports
Lab Data
05/01/24 03:44
05/01/24 09:01
Laboratory Results
04/30/24 05/01/24 05/01/24
21:16 03:44 05:33
APTT 37.1 H > 200 H*
pH 7.19 L*
pCO2 62 H
pO2 72 L
HCO3 23.7
O2 Delivery Level 2l
[2024-05-01 10:51] LABS: Glucose - Point of Care 129 mg/dl (70-99)
--- NOTE | 2024-05-01 13:00 | W.PN.CD ---
Today's Communication / Plan
-
Complex medical issues. Challenging management issues with patient's swallowing limitations in addition patient has marked lower extremity edema and has rising creatinine despite use of diuretic. Reviewed issues with Dr. Hankins who is having
additional discussions with family regarding level of care and goals of care. Based on that discussion he will make determinations if he will proceed with nephrology consultation. In the meantime we will continue current therapy, current rate
control and will check bladder scan.
Impression / Plan
-
Rmuik-bd-ieplynd HFrEF:
-receiving IV lasix amd rising creatine despite marked edma on exam
-echo EF 30-35%, falttened septum consisten with RV pressure and volume overlead. Dilated and hypokinetic RV, low flow . Mean gradient 15mmHg and JOSEPH o.8cm squared
-weights/I/Os and monitor labs
- ? accuracy of weight s ( up 3 Kg in one day? without clear I/O . syd cabrera)
Cardiomyopathy
- diuressis
- GDMT limited by JAMEEL and swallowing issues
- would use beta krista rather than cardizem when able tot take PO
-
Atrial flutter: unknown type and onset
-rates fast on arrival- now controlled on diltiazem drip-. Ramins on IV due to limited oral intacke and aspiration assessmnemt
-TSH is pending, checking echo
-IV heaprin initiated for [id number] score of 4 for age, CAD, CHF. Natalie rizvi able to t take PO.Consult CM for pricing. If/when renal function normalizes, will need higher dose,
-May consider cardioversion after anticogulation for >.3 weeks. Could consider DEO cardioversion sooner but unclear about swallowing issues
Abnormal troponin:
- .068. Etiolgy unclear may be nonischemic secondary HF or type II secondary to demand.
, non-ischemic myocardial injury in setting of hypoxia, CHF, JAMEEL
anticoagulation for afib/ flutter and to vcover PE with dilated RV. No CT due to JAMEEL
CAD:
-stable without CP
-continue ASA, statin
PAD:
-ASA/statin
COPD:
-pulmonary is consulted
JAMEEL: worsening. Challenging issue swith marked edma
- nephrology consult.
- Cabrera to monitor I/o and exclude obstruction
-
Physical Exam
Vital Signs/Labs
Vital Signs
Temp Pulse Resp BP Pulse Ox
98.2 F 88 31 116/81 95
05/01/24 11:35 05/01/24 07:48 05/01/24 03:15 05/01/24 07:48 05/01/24 03:15
04/30/24 05/01/24 05/02/24
06:59 06:59 06:59
Actual Weight 100.6 kg 103.079 kg
05/01/24 03:44
05/01/24 09:01
APTT > 200 Sec (23.4-35.0) H* 05/01/24 03:44
Magnesium 2.0 mg/dl (1.6-2.3) 04/30/24 10:54
Triglycerides 47 mg/dl (10-149) 04/30/24 10:54
LDL Cholesterol, Calc 44 mg/dl 04/30/24 10:54
VLDL Cholesterol, Calc 9 mg/dl (0-30) 04/30/24 10:54
HDL Cholesterol 69 mg/dl 04/30/24 10:54
04/29/24
19:24
Ttv-G-Frcaoltegru Pept [id number]
LAB Results
04/29/24 04/30/24 04/30/24
1924 00:30 10:54
Troponin I 0.068 H* Cancelled 0.057 H*
04/30/24
12:30
Troponin I Cancelled
Physical Exam
Constitutional: No acute distress
Cardiovascular: Rhythm/rate is irregular
Respiratory: Wheeze Absent, Rhonchi Absent and Other (Decreased bases)
GI: Soft and Non tender
Neuro/Psych: Alert, Oriented and AO x 3
Other: Other (Marked bilateral lower extremity edema is up through the thighs bilaterally)
Data Reviewed
-
Date of Service: May 01, 2024
Medical Decision Making: Reviewed Test Results
Echo: Report Reviewed by me
Medical Tests (PFT, Pathology etc): Report Reviewed by me
Labs: Labs Reviewed by me
--- NOTE | 2024-05-01 13:24 | CM ---
CM consult for hospice received. Referral sent to Hospice via [facility].
[2024-05-01 13:41] LABS: Glucose - Point of Care 117 mg/dl (70-99)
[2024-05-01 14:36] LABS: APTT 153.7 Sec (23.4-35.0)
--- NOTE | 2024-05-01 15:12 | PTCARENOTE ---
pt with LA infiltrate less than +!. heat applied, arm elevated. patient denies pain. family at bedside. mikala DORAN aware
--- NOTE | 2024-05-01 15:48 | W.PN.HOSP.TC ---
Today's Communication/Plan
-
change to Comfort Care
Hospice Consult
Allow him to eat, knowing he is at risk for aspiration
Assessment / Plan
Assessment / Plan
A/P: Patient is an 79y M with PMH significant for ASCVD, CHF and COPD who presents to ED for evaluation of weakness and fatigue.
Atrial Fibrillation / Flutter with Rapid Ventricular Response
- On Cardizem drip
- This is a new diagnosis for Mr. Leiva.
- Continue IV diltiazem and titrate as needed.
- Pt unable to swallow, changed Eliquis to Heparin
- With no noted symptoms - unclear how long arrhythmia has been present.
- Monitor on tele overnight.
- Cardiology evaluation discussed with Dr. Covington
Pt has hx of extensive Etoh ingestion and certainly could be playing a roll in the arrhythmia
Swallow dysfunction:
1. NPO; consider temporary non-oral means vs PO diet understanding risks/complications of aspiration
2. Medications : non-oral
3. Aspiration Risk Hydration Protocol - ice chips after oral care with supervision; D/C if respiratory status declines
4. Dysphagia therapy at the acute care level for education, pharyngeal swallowing exercises, and repeat video swallow study pending [facility].
Acute on Chronic HFpEF
- Patient with evident volume overload with 4+ pitting edema, 20 lbs weight gain and marked elevation in BNP.
- Patient weighs himself weekly at home and has noted increase in weight.
- He had questionable compliance with Lasix prior to 04/14 appointment with Pulmonary - states he has been better since that time.
- IV Lasix BID.
- Follow I/Os, daily weights, etc.
- Echo: Normal left ventricular size. Global hypokinesis. LV ejection fraction is 30-
35% by visual assessment.
Flattened septum in systole and diastole consistent with RV pressure and volume
overload.
Markedly dilated right ventricle with severe hypokinesis.
Low flow aortic stenosis.
Compared to the prior on 11/05/2023, right ventricular and left ventricular
systolic dysfunction is new. Right ventricular enlargement is new. was
mild on echo on 11/05/2023 in the setting of normal function, this supports mild
on today's study.
- Rate / rhythm control as tachycardia likely contributing to his decompensation.
- Cardiology evaluation as noted above.
Acute Hypercapnic Respiratory Failure
Chronic Hypoxemic Respiratory Failure
COPD without Acute Exacerbation
- VBG in the ED today shows pH = 7.13 and elevated pCO2 = 73.
- Started on BiPAP and will continue overnight. Repeat gas in AM.
- Prescribed O2 at home 2-3 lpm - he is usually compliant with this at night - less so during the day.
- Increased O2 use last few days as he has remained in bed more often.
- ? if he would benefit more from BiPAP at night for home use given apparent CO2 retention?
- Pulm evaluation for additional recommendations.
- DuoNebs PRN. No evident wheezing, cough, etc.
ASCVD
- Patient denies any chest pain or any acute symptom changes from his perspective.
- Hepain
- Cath (10/2022) showed extensive coronary calcification and specifically 70% RCA lesion.
- Follow serial troponin - current elevation likely non-ischemic myocardial injury due to tachycardia, CHF, etc.
- Cardiology eval as noted above.
Benign Hypertension
- Stable. BP Lower than his usual - likely due to tachycardia.
- Follow for improvement with rate control and diuresis.
- He is not on any antihypertensive agents at baseline.
GERD / Hiatal Hernia
- Stable. Continue daily PPI.
Prostate Cancer
- s/p prostatectomy and currently on bicalutamide (last 2-3 months).
- Will hold this acutely until CHF is under better control.
- Bladder scan protocols.
DVT Prophylaxis: concern for possible PE
Macrocytic changes on CBC consistent with long time consumption of Etoh
Code Status: will change to DNR
met with dgt Toyin. She wants to make sure she is a contact worker lithography
phone # [phone]
Met with who is concerned about declining mentation over past year. Most likely multifactorial
Extensive meeting with and dgt 05/01
Pt wants to eat, they are aware of risk for aspiration. They DO NOT want him to have any sort of feeding tube. Reviewed the multiple pathologies with Dr. Medina and Adria. Pt has poor prognosis as per Cardio and Pulm. At this point family would
like him to be comfortable and not prolong the dying process. He will be transitioned to Comfort Care, but continue Cardizem and Heparin for next 24 hrs. will meet with all her children over next several hours (one dgt currently in air to
[place]) and most likely will transition to Hospice over next 24 hrs
Complex visit
time 65 minutes
Anticipated Discharge: > 48 hours
Subjective/Interval History
-
Date of Service: May 01, 2024
pt obviously very weak, failed swallowing evaluation
Objective Data
-
Labs:
Laboratory Results
05/01/24 05/01/24 05/01/24
03:44 05:33 09:01
WBC 12.6 H
Hgb 11.4 L
Hct 37.4 L
Plt Count 381
APTT > 200 H*
HCO3 23.7
Sodium 139
Potassium 5.8 H 5.9 H
Chloride 105
Carbon Dioxide 21 L
BUN 78 H
Creatinine 3.6 H
Glucose 128 H
Calcium 8.6
05/01/24
13:53
WBC
Hgb
Hct
Plt Count
APTT 153.7 H*
HCO3
Sodium
Potassium
Chloride
Carbon Dioxide
BUN
Creatinine
Glucose
Calcium
Vital Signs:
Vital Signs
Temp Pulse Resp BP Pulse Ox
98.2 F 88 31 116/81 95
05/01/24 11:35 05/01/24 07:48 05/01/24 03:15 05/01/24 07:48 05/01/24 03:15
Review of Systems
-
History Source: Patient, Family (reviewed with dgt (Toyin) and ) and Physician (reviewed with Dr. Covington, Dr. Medina)
Constitutional: Denies Fever
EENT: Reports No Symptoms Reported
Respiratory: Reports Trouble Breathing
Cardiac: Denies Chest Pain
Abdomen/GI: Reports No Symptoms
Physical Exam
-
General: Well Developed, Well Nourished, No Apparent Distress, Appears Chronically Ill and Other (pt going in and out of consciousness during time in room)
HEENT: Normocephalic, Atraumatic and Moist Mucous Membranes
Respiratory: Clear to Auscultation; Negative Wheezes, Rales or Rhonchi
Cardiac: S1/S2 and Irregular Rhythm
GI: Nontender and Nondistended
Musculoskeletal: No Clubbing, No Cyanosis, No Edema, Edema, Right Lower Extrem and Edema, Left Lower Extrem
Neuro: Awake and Other (slight upper extremity tremor with mild cogwheel changes)
[2024-05-01] MEDS: HEPARIN 25000 UNITS/250 ML IV (16:36)
--- NOTE | 2024-05-01 17:19 | HOSPNOTE ---
Called the patients Imelda Alston. No answer,message left. Hospice will call the patients again on to discuss Hospice services.
[2024-05-01 23:23] LABS: APTT 156.4 Sec (23.4-35.0)
[2024-05-01 23:33] LABS: Blood Urea Nitrogen 84 mg/dl (9-20); Calcium 8.5 mg/dl (8.4-10.2); Carbon Dioxide 21 mmol/L (22-30); Chloride 104 mmol/L (98-107); Estimated Creatinine Clearance 16 ml/min; Glucose 133 mg/dl (70-99); Potassium 6.3 mmol/L (3.5-5.1); Sodium 137 mmol/L (135-145); eGFR 12.11
[2024-05-02] VITALS (12 sets, daily range): BP systolic 103–143; BP diastolic 51–72; BMI 29.9
[2024-05-02] MEDS: NOVOLIN R 0.1 UNITS IV (00:19)
[2024-05-02] MEDS: DEXTROSE 50% SYRINGE 25 GRAMS IV (00:21)
--- NOTE | 2024-05-02 00:35 | PTCARENOTE ---
Labs reviewed, orders obtained. See MAR. Pt moaning in sleep, but awakens and denies any complaints. Pt with no urine output, bladder scan for 104ml. Will continue to monitor.
[2024-05-02 01:36] LABS: Glucose - Point of Care 120 mg/dl (70-99)
[2024-05-02 02:43] LABS: Glucose - Point of Care 108 mg/dl (70-99)
[2024-05-02 04:37] LABS: Glucose - Point of Care 104 mg/dl (70-99)
[2024-05-02 06:40] LABS: Glucose - Point of Care 103 mg/dl (70-99)
[2024-05-02 06:55] LABS: Hematocrit 35.7 % (39.0-52.0); Hemoglobin 10.9 g/dL (13.0-18.0); Mean Corp Hgb Conc. 30.5 g/dL (33.0-37.0); Mean Corpuscular Hgb 31.8 pg (27.0-31.0); Mean Corpuscular Volume 104.1 fL (80.0-94.0); Platelet Count 425 10^3/uL (130-400); Red Blood Cell Count 3.43 10^6/uL (4.70-6.10); Red Cell Dist. Width 13.8 % (11.5-14.5); White Blood Cell Count 11.2 10^3/uL (4.8-10.8)
[2024-05-02 07:01] LABS: APTT 76.2 Sec (23.4-35.0)
[2024-05-02 07:09] LABS: ALT (SGPT) 18 U/L (0-50); AST (SGOT) 38 U/L (17-59); Albumin 3.5 g/dl (3.5-5.0); Alkaline Phosphatase 84 U/L (38-126); Blood Urea Nitrogen 85 mg/dl (9-20); Calcium 8.5 mg/dl (8.4-10.2); Carbon Dioxide 21 mmol/L (22-30); Chloride 104 mmol/L (98-107); Estimated Creatinine Clearance 13 ml/min; Glucose 119 mg/dl (70-99); Potassium 6.1 mmol/L (3.5-5.1); Sodium 138 mmol/L (135-145); Total Bilirubin 0.5 mg/dl (0.2-1.3); Total Protein 6.7 g/dl (6.3-8.2); eGFR 10.96
[2024-05-02] MEDS: CRESTOR 20 MG PO (08:01)
[2024-05-02] MEDS: PROTONIX 40 MG PO (08:01)
[2024-05-02] MEDS: CARDIZEM 125 IV ×2 (08:01→19:58)
[2024-05-02] MEDS: LOW STRENGTH ASPIRIN 81 MG PO (08:01)
--- NOTE | 2024-05-02 08:32 | VATNOTE ---
Vat rounds left arm infiltrated continues to be swollen +1-2 edema. Warm compress applied and elevated on pillow. Will monitor closely.
--- NOTE | 2024-05-02 09:24 | W.PN.CD ---
Today's Communication / Plan
-
As noted Dr. Hankins is directing patient's care and is had discussions with family to direct care towards comfort and there are additional discussions regarding hospice. Poor prognosis as noted above.
For now continue IV Cardizem for rate control.
Impression / Plan
-
Hbsvt-bg-dhhbymp HFrEF:
-receiving IV lasix amd rising creatine despite marked edma on exam
-echo EF 30-35%, falttened septum consisten with RV pressure and volume overlead. Dilated and hypokinetic RV, low flow . Mean gradient 15mmHg and JOSEPH o.8cm squared limited options for inotropes with issues with a flutter with accelerated
ventricular response and JAMEEL.
-weights/I/Os and monitor labs
-
Cardiomyopathy
- diuressis
- GDMT limited by JAMEEL and swallowing issues
- would use beta krista rather than cardizem when able tot take PO
-
Atrial flutter: unknown type and onset
-rates fast on arrival- now controlled on diltiazem drip-. Ramins on IV due to limited oral intake and aspiration assessmnemt
-TSH is pending, checking echo
-IV heaprin initiated for [id number] score of 4 for age, CAD, CHF. Eliquis would be considered if able to take p.o.
-Patient too high risk to consider DEO cardioversion at this point. Would continue with anticoagulation. And rate control at the current time
.
Abnormal troponin:
- .068. Etiolgy unclear may be nonischemic secondary HF or type II secondary to demand.
, non-ischemic myocardial injury in setting of hypoxia, CHF, JAMEEL
anticoagulation for afib/ flutter and to cover PE with dilated RV. No CT due to JAMEEL
JAMEEL. Patient with acute rise in creatinine to 5.0. Diuretic had been held yesterday. Exact causes for acute rise not clear.
CAD:
-stable without CP
-continue ASA, statin
PAD:
-ASA/statin
COPD:
-pulmonary is consulted
Disposition. Overall prognosis poor considering patient's multiple medical issues and now acute renal failure with creatinine up to 5.0. Particularly poor poor if no plan for dialysis. Issues reviewed with Dr. Hankins whose had additional
discussions with the patient's family yesterday and patient is currently on comfort measures and there are discussions regarding hospice.
Physical Exam
Vital Signs/Labs
Vital Signs
Temp Pulse Resp BP Pulse Ox
98.2 F 118 25 119/71 95
05/02/24 07:15 05/02/24 08:00 05/02/24 08:00 05/02/24 08:00 05/02/24 08:00
05/01/24 05/02/24 05/03/24
06:59 06:59 06:59
Actual Weight 103.079 kg 99.9 kg
05/02/24 06:32
05/02/24 06:32
APTT 76.2 Sec (23.4-35.0) H 05/02/24 06:32
Magnesium 2.0 mg/dl (1.6-2.3) 04/30/24 10:54
Triglycerides 47 mg/dl (10-149) 04/30/24 10:54
LDL Cholesterol, Calc 44 mg/dl 04/30/24 10:54
VLDL Cholesterol, Calc 9 mg/dl (0-30) 04/30/24 10:54
HDL Cholesterol 69 mg/dl 04/30/24 10:54
04/29/24
19:24
Qbq-U-Bhvwvhamalu Pept [id number]
LAB Results
04/29/24 04/30/24 04/30/24
19:24 00:30 10:54
Troponin I 0.068 H* Cancelled 0.057 H*
04/30/24
12:30
Troponin I Cancelled
Physical Exam
Constitutional: Other (Points to abdomen as if he is having some abdominal discomfort but does not clearly appear in pain.)
Cardiovascular: Rhythm/rate is irregular
Respiratory: Wheeze Absent and Other (Decreased at bases)
GI: Soft
Neuro/Psych: Other (Bilateral lower extremity edema)
Data Reviewed
-
Date of Service: May 02, 2024
Medical Decision Making: Reviewed Test Results
Medical Tests (PFT, Pathology etc): Report Reviewed by me
Labs: Labs Reviewed by me
--- NOTE | 2024-05-02 12:02 | HOSPNOTE ---
Called patients again this morning on both her phone numbers. Message was left regarding reason for the call and return phone numbers.
--- NOTE | 2024-05-02 15:48 | W.PN.HOSP.TC ---
Today's Communication/Plan
-
transition to Hospice
continue Morphine for distress
Assessment / Plan
Assessment / Plan
A/P: Patient is an 79y M with PMH significant for ASCVD, CHF and COPD who presents to ED for evaluation of weakness and fatigue.
Atrial Fibrillation / Flutter with Rapid Ventricular Response
- On Cardizem drip
now in NSR
- This is a new diagnosis for Mr. Leiva.
- Continue IV diltiazem and titrate as needed.
- Pt unable to swallow, changed Eliquis to Heparin
Pt is obviously terminal. Will stop Heparin
- With no noted symptoms - unclear how long arrhythmia has been present.
- Monitor on tele overnight.
- Cardiology evaluation discussed with Dr. Covington
Pt has hx of extensive Etoh ingestion and certainly could be playing a roll in the arrhythmia and anemia
Swallow dysfunction:
1. NPO; pt wanted to eat and wanted him to get food. Pt will be going on Hospice and thus will be allowed Pureed food
2. Medications : non-oral
3. Aspiration Risk Hydration Protocol - ice chips after oral care with supervision; D/C if respiratory status declines
Acute Renal Failure on CKD
K 6.1, BUN/Creat 85/5.0
Long discussion with . Pt will be going on Hospice once seen by special education coordinator. Will not attempt to reverse renal aspects
Acute on Chronic HFpEF
- Patient with evident volume overload with 4+ pitting edema, 20 lbs weight gain and marked elevation in BNP.
- Patient weighs himself weekly at home and has noted increase in weight.
- He had questionable compliance with Lasix prior to 04/14 appointment with Pulmonary - states he has been better since that time.
- IV Lasix stopped
- Follow I/Os, daily weights, etc.
- Echo: Normal left ventricular size. Global hypokinesis. LV ejection fraction is 30-
35% by visual assessment.
Flattened septum in systole and diastole consistent with RV pressure and volume
overload.
Markedly dilated right ventricle with severe hypokinesis.
Low flow aortic stenosis.
Compared to the prior on 11/05/2023, right ventricular and left ventricular
systolic dysfunction is new. Right ventricular enlargement is new. was
mild on echo on 11/05/2023 in the setting of normal function, this supports mild
on today's study.
- Rate / rhythm control as tachycardia likely contributing to his decompensation.
- Cardiology evaluation as noted above.
Acute Hypercapnic Respiratory Failure
Chronic Hypoxemic Respiratory Failure
COPD without Acute Exacerbation
- VBG in the ED showed pH = 7.13 and elevated pCO2 = 73.
- Started on BiPAP and will continue overnight. Repeat gas in AM.
- Prescribed O2 at home 2-3 lpm - he is usually compliant with this at night - less so during the day.
- Increased O2 use last few days as he has remained in bed more often.
- Pulm evaluation for additional recommendations appreciated, have since signed off
- DuoNebs PRN. No evident wheezing, cough, etc.
ASCVD
- Patient denies any chest pain or any acute symptom changes from his perspective.
- Hepain
- Cath (10/2022) showed extensive coronary calcification and specifically 70% RCA lesion.
- Follow serial troponin - current elevation likely non-ischemic myocardial injury due to tachycardia, CHF, etc.
- Cardiology eval as noted above.
Benign Hypertension
- Stable. BP Lower than his usual - likely due to tachycardia.
- Follow for improvement with rate control and diuresis.
- He is not on any antihypertensive agents at baseline.
GERD / Hiatal Hernia
- Stable. Continue daily PPI.
Prostate Cancer
- s/p prostatectomy and currently on bicalutamide (last 2-3 months).
- Will hold this acutely until CHF is under better control.
- Bladder scan protocols.
DVT Prophylaxis: concern for possible PE
Macrocytic changes on CBC consistent with long time consumption of Etoh
Code Status: will change to DNR
met with dgt Toyin. She wants to make sure she is a appraiser personal property
phone # [phone]
Met with who is concerned about declining mentation over past year. Most likely multifactorial
Extensive meeting with and dgt 05/02
Pt wants to eat, they are aware of risk for aspiration. They DO NOT want him to have any sort of feeding tube. Reviewed the multiple pathologies with Dr. Medina and Adria. Pt has poor prognosis as per Cardio and Pulm. At this point family would
like him to be comfortable and not prolong the dying process. He will be transitioned to Comfort Care, but continue Cardizem for next 24 hrs and stop Heparin. spoke with all her children and all accepting plan to transition to Hospice.
Complex visit
time 65 minutes
Anticipated Discharge: 24 - 48 hours
Subjective/Interval History
-
Date of Service: May 02, 2024
remains very weak
Objective Data
-
Labs:
Laboratory Results
05/02/24 05/02/24
06:32 15:12
WBC 11.2 H
Hgb 10.9 L
Hct 35.7 L
Plt Count 425 H
APTT 76.2 H Pending
Sodium 138
Potassium 6.1 H*
Chloride 104
Carbon Dioxide 21 L
BUN 85 H
Creatinine 5.0 H*
Glucose 119 H
Calcium 8.5
Total Bilirubin 0.5
AST 38
ALT 18
Alkaline Phosphatase 84
Vital Signs:
Vital Signs
Temp Pulse Resp BP Pulse Ox
98.6 F 117 30 108/67 98
05/02/24 11:30 05/02/24 14:00 05/02/24 14:00 05/02/24 14:00 05/02/24 14:00
I&O
11/05/02/24 05/03/24
06:59 06:59 06:59
Intake Total 420 / 420
Balance 420 / 420
Review of Systems
-
History Source: Patient, Family (reviewed with dgt (Toyin) and ) and Physician (reviewed with Dr. Covington, Dr. Medina)
Constitutional: Denies Fever
EENT: Reports No Symptoms Reported
Respiratory: Reports Trouble Breathing
Cardiac: Denies Chest Pain
Abdomen/GI: Reports No Symptoms
--- NOTE | 2024-05-02 15:59 | HOSPNOTE ---
SPoke with the patients this afternoon. Information was given on the Hospice philosophy and services. She understood that at this time the patients meets criteria for in home Hospice but not GIP. Hospice will continue to follow
--- NOTE | 2024-05-02 17:28 | HOSPNOTE ---
Spoke with this patients daughter after speaking with the patients . Daughter had concerns about why the patient did not meet criteria for GIP. Medicare regulations were explained to her in depth. During the conversation she screamed over this
RN and disputed all that was explained to her. At the end of the conversation she became insulting and used profanity. This RN had to end the conversation due to the daughters extreme behavior.
--- NOTE | 2024-05-02 18:31 | PTCARENOTE ---
Patient very lethargic, occasionally will answer yes or no questions but mostly does not respond. 4L NC, sats 95%. NST, VSS. Cardizem infusing at 15ml/hr. +3 pitting anasarca. Plan for hospice. Patient comfortable, Q2 turns. Family updated on plan,
lengthy discussions held with patients and daughter Toyin. Will continue to closely monitor.
[2024-05-02] MEDS: MORPHINE SULFATE 1 MG IV ×2 (19:54→23:58)
--- NOTE | 2024-05-02 22:25 | PTCARENOTE ---
assumed care of patient. pt is drowsy, awakens to verbal stimuli. pt able to nod head and answer yes or no questions without issues. at beginning of shift pt very restless, moaning out. did tell this RN he was uncomfortable. medicated with PRN
morphine per JUL. on 4LNC 96%. tachypneic at times. incontinent of bowel and bladder. scrotal edema noted. cardizem gtt infusing at 15ml/hr, HR 110s, son at bedside and given update. care ongoing.
[2024-05-03] VITALS (9 sets, daily range): BP systolic 96–116; BP diastolic 49–73; BMI 30.4
--- NOTE | 2024-05-03 09:09 | W.PN.UPDATE ---
Update Note
Progress Note Update
Issues reviewed with Dr Hankins yesterday . Patietn with complex medical issues and acute renal failure this admit. Dr Hankins reviewed treatment goals with patient and family and patient now on comfort measures. Son at bedside. patietn currently
comfortable. Initially asleep but easily wakes and responds to void. Comfortable.a dnin no distress.
HR controlled. Remains on cardizme. Can continue for now. Additional management and hospice planing as directed by Hospitalists
[2024-05-03] MEDS: PROTONIX PO (09:43)
[2024-05-03] MEDS: CRESTOR PO (09:43)
[2024-05-03] MEDS: MORPHINE SULFATE 1 MG IV (11:19)
--- NOTE | 2024-05-03 12:31 | CM ---
Addendum entered by Saray Ross RN 05/03/24 12:41:
Offered director sales and trade marketing to and sister who said they already met with director sales and trade marketing yesterday.
Original Note:
Patient in comfort care who was seen by Hospice. O2 4L. Receiving IV MS prn. Per nurse assessment; confused, restless, drowsy.
Messages with Leticia Miller and Mary Muniz, Hospice;
patient/family seen by Hospice today. Patient will remain in comfort care today with re-eval tomorrow for Inpatient Hospice/GIP.
Met with patient, Imelda Alston and patient's sister;
patient remained sleeping while CM was in the room. and sister acknowledged patient seemed comfortable and they are in agreement with the plan for comfort care today. expressed she is hoping patient can remain here at with inpatient
hospice.
Plan comfort care with Hospice following.
[2024-05-03] MEDS: MORPHINE 100 IV (13:59)
--- NOTE | 2024-05-03 14:03 | HOSPNOTE ---
Patient in comfort care, this RN visited patient. Daughter, and Sister at bedside. Patient will remain in comfort care today with re-eval tomorrow for Inpatient Hospice/GIP.
patient remained sleeping while CM was in the room. and sister in agreement with the plan for comfort care today.
Plan comfort care with Hospice following.
--- NOTE | 2024-05-03 15:16 | W.PN.HOSP.TC ---
Addendum entered and electronically signed by Rashawn Fonseca MD 05/04/24 12:44:
comofort care
Original Note:
Today's Communication/Plan
-
.
Assessment / Plan
Assessment / Plan
- patient is currently DNR and on comfort measures
- optimize comfort and dignity for patient
- Patient is currently on iv Robinul for secretions, and iv morphine for pain control
Atrial Fibrillation / Flutter with Rapid Ventricular Response:
- Chadsvasc score is 4
- Continue IV diltiazem 2.5 mg iv and titrate as needed.
- Stop heparin drip as part of comfort care
- HR is currently 95
- Echo shows a global hypokinesis and a LV ejection fraction of 30-35%, low flow aortic stenosis, dilated right ventricle with severe hypokinesis
Acute Renal Failure
stage 4 CKD:
- GRF is 10.96
-K 6.1, BUN, BUN 85, creatinine 5.0
- no attempts will be made to reverse kidney function
Acute on Chronic HFpEF
- Patient has 4+ bilateral pitting edema
- Weight is 101 kgs which is about a 1kg increase from admission
- IV Lasix stopped as part of comfort care
- Follow I/Os, daily weights, etc.
Hypercapnic Respiratory Failure:
- VBG showed pH = 7.13 and elevated pCO2 = 73.
- Bipap stopped
Benign Hypertension
- 101/67 and stable
- Currently on diltiazem but for rate control
GERD / Hiatal Hernia
- discontinue PPi
Code Status: DNR
Anticipated Discharge: Within 24 hours
Subjective/Interval History
-
Date of Service: May 03, 2024
Patient is currently DNR and on comfort care. Currently with his daughter and son. Currently on Cardizem, morphine.
Objective Data
-
Vital Signs:
Vital Signs
Temp Pulse Resp BP Pulse Ox
98.5 F 103 34 116/70 93
05/03/24 11:40 05/03/24 10:00 05/03/24 10:00 05/03/24 10:00 05/03/24 10:00
I&O
05/02/24 05/03/24 05/04/24
06:59 06:59 06:59
Intake Total 420 / 420
Balance 420 / 420
Review of Systems
-
Unable to obtain full review of systems at this time due to: Patient Intubation
Physical Exam
-
General: Intubated
Respiratory: Decreased Breath Sounds (Bilateral at the bases)
Cardiac: S1/S2 and Irregular Rhythm
GI: Soft and Nondistended
Musculoskeletal: Edema, Right Lower Extrem and Edema, Left Lower Extrem
Neuro: Awake
Data Reviewed
-
Medical Tests (Nuc Med, Echo etc): Image personally visualized and interpreted and Discussed with Physician
Labs: Labs Reviewed by me and Discussed with Physician
[2024-05-03] MEDS: ROBINUL 0.2 MG IV (17:44)
--- NOTE | 2024-05-03 20:56 | W.PN.DEATH ---
Pronouncement of
-
Called to see patient to pronounce.
No spontaneous heart tones or respirations noted.
Patient not responsive to verbal stimuli.
Patient is pronounced .
Time of : 19:31
Date of : 05/03/24
Family Notified: Yes
--- NOTE | 2024-05-03 21:28 | PTCARENOTE ---
Monitor alarming asystole. pt not breathing without heart sounds. Morphine gtt stopped; wasted with Rama Pierre RN. AZEB Light made aware to pronounce [facility] called. at bedside. took patient belongings. Post mortem care
done. pt taken to [facility] [place].
--- NOTE | 2024-05-04 13:50 | W.DCSUMMARY ---
Discharge Summary
Discharge Data
Date of Admission: 04/29/24
Date of Discharge: 05/04/24
-
Pending Results: No
Hospital Course
Discharging Physician : Raymundo Mack
Disposition :
Primary care physician : Dr. Pittman
Principal Discharge diagnosis : Hypercapnic respiratory failure
Chronic Discharge diagnosis : Atrial Flutter with rapid ventricular response, Acute renal failure CKD stage 4, Acute on Chronic HFrEF, , Benign Hypertension, GERD
Hospital Course : 79-year-old male with past medical history significant for CAT[place] ASCVD, CHF, COPD presented to the emergency room for shortness of breath, generalized weakness after he was not able to get out of his chair all day and seemed to be
low energy. They then used a pulse ox to measure his oxygen saturation was getting readings in the 60 along with increased swelling in the bilateral lower extremities. He has been seen his supervisor shaving and splitting on 04/14 to address noncompliance for home
oxygen use. On arrival he is noted to be in SVT with a rate of 140 bpm, then placed on IV diltiazem and monitor on telemetry overnight, heparin drip started, cardiology consulted. Speech was also consulted as he was exhibiting swallowing
dysfunction. On admission BMP GFR is 10.96, potassium 6.1, BUN 85, creatinine 5.0 which is then diagnosed as acute renal failure with stage IV CKD. Also placed on BiPAP for hypercapnic respiratory failure. Patient also developed acute on chronic
HFrEF and was receiving IV Lasix, ejection fraction 30 to 35% which indicates a poor prognosis. Due to the patient's clinical presentation both pulmonology and cardiology teams informed the family that this patient's long-term prognosis was poor
and reviewed the option of comfort care/hospice to patient his and daughter. Towards end of hospital course patient changed CODE STATUS to DNR and is on comfort measures, Cardizem drip was continued to maintain heart rate, on Robinul for
secretions and IV morphine for pain control, heparin drip was stopped as part of comfort care, no attempts to reverse kidney function in acute renal failure stage IV CKD and IV Lasix also stopped, BiPAP stopped. Patient on 05/03/2024 at
19:31.
Important imaging findings :
Chest x-ray on 04/21/2024 showed chronic pleural thickening and calcification within both lung bases
Peripheral vascular ultrasound on 04/30 showed no evidence of deep vein thrombosis of the lower extremities bilaterally
Echocardiogram 04/30/2024 showed a left ventricular ejection fraction of 30 to 35%, low-flow aortic stenosis, markedly dilated right ventricle with severe hypokinesis
Most recent EKG on 04/30/2024 showed atrial flutter with variable AV block, incomplete right bundle branch block, nonspecific ST and T wave abnormality, abnormal EKG
Procedure findings :
Discharge Plan
-
Patient Disposition:
Date/Time
Date/Time: 05/03/24 19:30
Discharge Date and Time
Discharge Date/Time: 05/03/24 19:30
Print Language: ROMANSH
== END 2024-05-03 19:30 | disposition expired | DRG 291 ==
LOC: IMU 22:43
PROVIDERS: Internal Medicine; Nurse Practitioner Family; ADMITTING PHYSICIAN Hospitalist; ATTENDING PHYSICIAN Hospitalist; CONSULT PHYSICIAN Internal Medicine Cardiovascular Disease; EMERGENCY PHYSICIAN Emergency Medicine; FAMILY PHYSICIAN Family Medicine; OTHER PHYSICIAN Internal Medicine Critical Care Medicine
DX: I13.0 Hypertensive heart and chronic kidney disease with heart failure and stage 1 through stage 4 chronic kidney disease, or unspecified chronic kidney disease (principal); I50.33 Acute on chronic diastolic (congestive) heart failure; J96.02 Acute respiratory failure with hypercapnia; I48.92 Unspecified atrial flutter; N17.9 Acute kidney failure, unspecified; N18.4 Chronic kidney disease, stage 4 (severe); Z87.891 Personal history of nicotine dependence; Z79.01 Long term (current) use of anticoagulants; I48.91 Unspecified atrial fibrillation; K21.9 Gastro-esophageal reflux disease without esophagitis; K44.9 Diaphragmatic hernia without obstruction or gangrene; Z66 Do not resuscitate; I5A Non-ischemic myocardial injury (non-traumatic)
CPT/HCPCS: 71045; 74230; 80048; 80053; 80061; 82805; 82962; 83735; 83880; 84132; 84443; 84484; 85025; 85027; 85730; 92526; 92610; 92611; 93005; 93306; 93970; 94660; 96361; 96374; 97163; 97166; 97530; 99291; Q9950